=== PATIENT | male | born 1940 | race Hispanic/Latino ===

== ENCOUNTER 2017-07-10 23:54 | Inpatient (IN) | payer MEDICARE ==
[~2017-07-10] VITALS: Ht 170.2 cm; Wt 63.5 kg
[~2017-07-10 23:54] MED LIST: ASPIR 8181 MG PO; ATORVASTATIN CA40 MG PO; CARVEDILOL25 MG PO; CLOPIDOGREL75 MG PO; COUMADIN3 MG PO; FUROSEMIDE20 MG PO; ISOSORBIDE MONO60 MG PO; LISINOPRIL5 MG PO; OMEPRAZOLE20 M1 PO; POTASSIUM CHLO10 ME1 PO; SERTRALINE HCL100 MG PO
[2017-07-11] MEDS ORDERED: PANTOPRAZOLE 40 MG 10ML VIAL IV STA (00:18)
[2017-07-11] MEDS ORDERED: SODIUM CHLORIDE 0.9% 500ML 500 ML IV ONE (00:30)
[2017-07-11 00:41] LABS: BASOPHILS # (AUTO) 0.1 (0.0-0.1); BASOPHILS % 0.7 % (0.0-1.0); EOSINOPHILS # (AUTO) 0.1 (0.0-0.4); EOSINOPHILS % 1.3 % (0.0-6.0); HEMATOCRIT 51.7 % (38.2-49.6); HEMOGLOBIN 17.5 g/dL (14.0-18.0); LYMPHOCYTES # (AUTO) 1.2 (1.0-3.2); LYMPHOCYTES % 12.7 % (18.0-39.1); MEAN CORPUSCULAR HEMOGLOBIN 30.4 pg (28-32); MEAN CORPUSCULAR HGB CONC 33.8 g/dL (31-35); MEAN CORPUSCULAR VOLUME 89.9 fL (81-99); MONOCYTES # (AUTO) 0.8 (0.2-0.8); NEUTROPHILS # (AUTO) 7.3 (2.1-6.9); PLATELET COUNT 248 x10e3/uL (140-360); RED BLOOD COUNT 5.75 x10e6/uL (4.3-5.7); RED CELL DISTRIBUTION WIDTH 13.2 % (11.7-14.4)
[2017-07-11 00:51] LABS: INR 0.91; PROTHROMBIN TIME 12.7 seconds (11.9-14.5)
[2017-07-11 00:52] LABS: PARTIAL THROMBOPLASTIN TIME 30.9 seconds (23.8-35.5)
[2017-07-11 01:02] LABS: ALANINE AMINOTRANSFERASE 13 IU/L (0-55); ALBUMIN 4.3 g/dL (3.5-5.0); ALKALINE PHOSPHATASE 117 IU/L (40-150); AMYLASE 85 U/L (25-125); ANION GAP 17.2 mmol/L (8-16); BLOOD UREA NITROGEN 13 mg/dL (7-26); BUN/CREATININE RATIO 13 (6-25); CALCIUM 9.5 mg/dL (8.4-10.2); CARBON DIOXIDE 24 mmol/L (22-29); CHLORIDE 104 mmol/L (98-107); CREATINE KINASE 78 IU/L (30-200); CREATININE, SERUM 1.02 mg/dL (0.72-1.25); EST GLOMERULAR FILTRATION RATE > 60 ML/MIN (60-); GLUCOSE 108 mg/dL (74-118); LIPASE 5 U/L (8-78); POTASSIUM 4.2 mmol/L (3.5-5.1); SODIUM 141 mmol/L (136-145)
[2017-07-11 01:03] LABS: BILIRUBIN,URINE NEGATIVE (NEGATIVE); CLARITY,URINE CLEAR (CLEAR); COLOR,URINE YELLOW (YELLOW); KETONES,URINE 3+ (NEGATIVE); LEUKOCYTE ESTERASE ,URINE NEGATIVE (NEGATIVE); NITRITE,URINE NEGATIVE (NEGATIVE); URINE UROBILINOGEN 0.2 mg/dL (0.2 - 1)
[2017-07-11 01:09] LABS: TROPONIN I 0.049 ng/mL (0-0.300)
[2017-07-11 01:10] LABS: PROTEIN,URINE DIPSTICK 1+ (NEGATIVE)
[2017-07-11 01:13] LABS: B-TYPE NATRIURETIC PEPTIDE2 730.6 pg/mL (0-100)
[2017-07-11 01:16] LABS: BACTERIA,URINE FEW /HPF; RBC,URINE >50 /HPF (0-5)
[2017-07-11 01:17] LABS: EPITHELIAL CELLS,URINE FEW /LPF
[2017-07-11] MEDS ORDERED: SODIUM CHLORIDE 0.9% 1000ML 1,000 ML IV STA (02:03)
[2017-07-11] MEDS ORDERED: VANCOMYCIN 1GM/NS 250 ML 250 ML IV STA (02:03)
[2017-07-11] MEDS ORDERED: CEFTRIAXONE SOD 1 GM VIAL IV ONE (02:15)
--- NOTE | 2017-07-11 02:33 | Diagnostic Imaging Report ---
EXAMINATION: Head CT without contrast. HISTORY:Trauma, fall. COMPARISON:None. TECHNIQUE: Multidetector axial images were obtained from the foramen magnum to the vertex without contrast. The images were reconstructed using brain and bone algorithms. Thin section brain images were reformatted into coronal and sagittal planes. Intravenous contrast: None IMAGE QUALITY: Acceptable. FINDINGS: Skull/scalp: No abnormality. Parenchyma: Nonspecific bilateral frontoparietal patchy white matter hypodensity are likely related to small vessel ischemic changes. Cortical-based hypodensity centered in the left inferior frontal gyrus, frontal operculum, insular and subinsular region that extends to the saucedo radiata represents chronic encephalomalacia possibly related to prior vascular insult. No acute major vascular territorial acute infarct. No acute hemorrhage or mass. Arteries: Atherosclerotic calcification in bilateral carotid siphon. Dural sinuses: No abnormal density suggestive of thrombosis. Ventricles: Exvacuodilatation of left lateral ventricle. Moderate compensated dilatation due to volume loss. Extra-axial spaces: No abnormal density. Brain volume: Normal for age. Craniocervical junction: No mass, Chiari malformation, or basilar invagination. Sella: No mass. Paranasal/mastoid sinuses: Imaged portions unremarkable. IMPRESSION: 1. No acute intracranial abnormality, particularly no acute hemorrhage, mass or acute major vascular territorial infarct. 2. 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 3. Mild supratentorial white matter microvascular ischemic changes. Signed by: Dr. Anastasia Gee M.D. on 07/11/2017 2:29 AM
[2017-07-11] MEDS: CEFEPIME HCL 2 GM VIAL IV SCH ×2 (02:34→16:45)
--- NOTE | 2017-07-11 02:37 | Diagnostic Imaging Report ---
EXAM: CT CHEST, ABDOMEN, PELVIS with IV CONTRAST DATE: 07/11/2017 12:18 AM Time stamp on Exam: 0145 hours INDICATION: Fall, pain to entire right side COMPARISON: None TECHNIQUE: The chest, abdomen and pelvis were scanned using a multidetector helical scanner. Coronal and sagittal reformations were obtained. Routine protocol performed. IV Contrast: 100 cc Isovue-370 Oral Contrast: None CTDIvol has been reviewed. It is below the limits set by the Radiation Protocol Committee (RPC). FINDINGS: LUNGS AND AIRWAYS: No consolidations PLEURA: No effusions or pneumothorax HEART, MEDIASTINUM, VESSELS: No evidence of acute traumatic thoracic aortic injury. No mediastinal hematoma. LIVER: No lacerations or hematoma BILIARY: Normal gallbladder. No ductal dilation. SPLEEN: No lacerations or hematoma PANCREAS: No lacerations or hematoma ADRENALS: No hemorrhage KIDNEYS: Symmetric perfusion. No enhancing masses. No hydronephrosis. GI TRACT: No distention, wall thickening or evidence of obstruction. VESSELS: No evidence of acute injury. Atherosclerotic changes without aneurysm. PERITONEUM/RETROPERITONEUM: No free air or fluid LYMPH NODES: No lymphadenopathy REPRODUCTIVE ORGANS: Unremarkable BLADDER: Decompressed by Torres catheter. SOFT TISSUES: Unremarkable BONES: Old right posterior ninth through 11th fractures. Age-indeterminate nondisplaced fracture of the right L1 transverse process. IMPRESSION: No evidence of acute injury to the chest. Age-indeterminate, possibly acute nondisplaced fracture of the right L1 transverse process. No intraabdominal or pelvic abnormality. Signed by: Dr. Mirela Arora M.D. on 07/11/2017 2:33 AM
--- NOTE | 2017-07-11 02:37 | Diagnostic Imaging Report ---
History: Trauma, fall. Comparison studies: None Technique: Axial images were obtained through the cervical region.. Coronal and sagittal images reconstructed from the axial data.. Intravenous contrast: None Findings: Fractures: None. Soft tissue injuries: None. Atlantoaxial articulation: Intact. Alignment: Loss of normal cervical lordosis may be positional or due to muscle spasm. No scoliosis. Cervicomedullary junction: No abnormalities. The foramen magnum is patent. Soft tissues: No abnormalities. Vertebrae: No fractures, infection or neoplasm. Degenerative changes: Advanced degenerative changes in the anterior atlantodental joint. C2-C3: Advanced left facet arthrosis without significant foraminal stenosis. C3-C4: Moderate degenerative disc disease. Posterior disc osteophyte complex without canal stenosis. Mild left foraminal stenosis due to facet and uncovertebral arthrosis. C4-C5: Severe degenerative disc disease. Posterior disc osteophyte complex without significant canal stenosis. Severe bilateral foraminal stenosis due to facet and uncovertebral arthrosis. C5-C6: Moderate degenerative disc disease. Severe right and mild left foraminal stenosis due to facet and uncovertebral arthrosis. C6-C7: Severe degenerative disc disease. Posterior disc osteophyte complex without canal stenosis. Moderate right and severe left foraminal stenosis due to facet and uncovertebral arthrosis. C7-T1: Severe degenerative disc disease. Severe left foraminal stenosis due to facet and uncovertebral arthrosis. IMPRESSION: 1. No acute cervical spine fracture. Loss of normal cervical lordosis may be positional or due to muscle spasm. 2. Ligament, spinal cord and or vascular abnormalities cannot be excluded on the basis of this examination. 3. Cervical spondylosis as detailed above. Signed by: Dr. Anastasia Gee M.D. on 07/11/2017 2:34 AM
--- NOTE | 2017-07-11 02:38 | Diagnostic Imaging Report ---
EXAM: CHEST SINGLE (PORTABLE), AP 1 view DATE: 07/11/2017 12:18 AM Time stamp on exam: 2248 hours INDICATION: Right-sided rib pain COMPARISON: None FINDINGS: LINES/TUBES: None LUNGS: No consolidations or edema. PLEURA: No effusions or pneumothorax. HEART AND MEDIASTINUM: Normal size and contour. BONES AND SOFT TISSUES: No acute findings. IMPRESSION: No acute thoracic abnormality. Signed by: Dr. Mirela Arora M.D. on 07/11/2017 2:35 AM
[2017-07-11] MEDS ORDERED: LABETALOL HCL IV 5 MG/ML 20ML MDV IV STA (03:50)
[2017-07-11] MEDS ORDERED: METOPROLOL TARTRATE 25 MG TAB PO ONE (04:30)
--- NOTE | 2017-07-11 04:45 | Diagnostic Imaging Report ---
EXAM: KNEE RIGHT THREE VIEWS, AP, lateral and oblique DATE: 07/11/2017 4:11 AM Time stamp on exam: 0119 hours INDICATION: Fall, right knee pain COMPARISON: None FINDINGS: BONES: No acute fractures. JOINTS: No malalignment. SOFT TISSUES: Vascular calcifications. Small joint effusion. IMPRESSION: Small joint effusion. No right knee fracture. Signed by: Dr. Mirela Arora M.D. on 07/11/2017 4:42 AM
[2017-07-11] MEDS ORDERED: SODIUM CHLORIDE 0.9% 1000ML 1,000 ML ONE (04:56)
[2017-07-11] MEDS: FAMOTIDINE 20 MG/2 ML VIAL IV SCH ×2 (04:59→17:00)
[2017-07-11] MEDS: SODIUM CHLORIDE 0.9% 1000ML 1,000 ML IV SCH ×2 (04:59→14:21)
[2017-07-11] MEDS ORDERED: SODIUM CHLORIDE 0.9% 50ML 50 ML ONE (07:07)
[2017-07-11] MEDS ORDERED: IOPAMIDOL 370 MG/ML 200 ML INFUS..BTL INJ ONE (07:07)
[2017-07-11 07:18] VITALS: BP 181/93
[2017-07-11 08:00] VITALS: BP 191/87
[2017-07-11] MEDS: METOPROLOL TARTRATE 25 MG TAB PO SCH ×2 (09:52→18:54)
[2017-07-11] MEDS: ASPIRIN 81 MG ENTERIC COATED PO SCH (09:52)
[2017-07-11 10:43] LABS: CREATINE KINASE MB 1.5 ng/mL (0.00-5.00); TROPONIN I 0.062 ng/mL (0-0.300)
--- NOTE | 2017-07-11 11:04 | History and Physical ---
PRIMARY CARE PHYSICIAN: Dr. Miramontes at [facility]. CHIEF COMPLAINT: Fall. HISTORY OF PRESENT ILLNESS: A 76-year-old man with a history of ambulatory dysfunction and stroke with right-sided weakness, uses a walker sometimes. Now having a fall, probably about 2 days ago. His daughter notes that he had fallen but did not tell them. When they tried to get him up, he was in significant back pain. Therefore, they brought him to the hospital. Patient complaining of lower back pain. Imaging showed an L1 fracture. He is admitted for further evaluation and management. PAST MEDICAL HISTORY: Stroke with right-sided weakness. Atrial fibrillation, on Coumadin. Coronary artery disease status post stent about 1 year ago, on Plavix. Hypertension. Hyperlipidemia. Congestive heart failure, type unknown. Anxiety/depression. PAST SURGICAL HISTORY: Unknown. ALLERGIES: PER THE ELECTRONIC MEDICAL RECORDS. FAMILY HISTORY/SOCIAL HISTORY: Patient lives with his daughter. He smokes occasionally. No alcohol or illicits. MEDICATIONS: Per the electronic medical records. Reviewed. REVIEW OF SYSTEMS: Denies any chest pain or shortness of breath. VITAL SIGNS: Have been reviewed. PHYSICAL EXAMINATION GENERAL APPEARANCE: A tired-appearing man resting in bed. HEENT: Anicteric. Poor dentition. CARDIOVASCULAR: Normal S1/S2. LUNGS: Good breath sounds. ABDOMEN: Soft, nontender, nondistended. BACK: He has tenderness in the lumbar region. EXTREMITIES: No edema or calf tenderness. NEUROLOGICALLY: He is alert, awake. He is oriented x3. He moves all extremities, but he has right-sided weakness in the right arm and leg and limited movement. SKIN: Dry. PSYCHIATRIC: Flat affect. LABS: Reviewed. ASSESSMENT AND PLAN: A 76-year-old man. 1. Fall with L1 lumbar fracture. Will consult Radiology for kyphoplasty. He will need DEXA scan, and he will need treatment for presumed osteoporosis. 2. Urinary tract infection. Levaquin. Follow up cultures. 3. Right knee effusion, small. Will monitor. 4. Physical deconditioning. Physical therapy consultation. 5. Atrial fibrillation. He is on Coumadin. Withhold Coumadin at this time in preparation for procedure. 6. Coronary artery disease with a history of stent about 1 year ago. Will hold Plavix in anticipation of procedure. 7. Hypertension/hyperlipidemia. Will resume his JOSEFA inhibitor, nitrate, beta cristopher, statin. 8. Anxiety/depression. We will resume sertraline. 9. Back pain. Use p.r.n. pain medication. 10. Prophylaxis. Will use PPI and SCDs. 11. Disposition. Await procedure. Will consult Radiology. Treat infection. Monitor fluid status and continue Lasix use. Job#: [id number] EV
[2017-07-11 12:00] VITALS: BP 163/74
[2017-07-11 16:00] VITALS: BP 173/75
[2017-07-11] MEDS: MORPHINE SULFATE 2 MG/ML SYR IV PRN (16:15)
[2017-07-11] MEDS: CARVEDILOL 12.5 MG TAB PO SCH (17:00)
[2017-07-11 19:17] LABS: CREATINE KINASE MB 1.6 ng/mL (0.00-5.00); TROPONIN I 0.056 ng/mL (0-0.300)
[2017-07-11 20:00] VITALS: BP 151/77
[2017-07-11] MEDS: LISINOPRIL 2.5 MG TAB PO SCH (22:07)
[2017-07-11] MEDS: ATORVASTATIN 40 MG TAB PO SCH (22:07)
[2017-07-12] VITALS: BP 142/90
[2017-07-12] MEDS: SODIUM CHLORIDE 0.9% 1000ML 1,000 ML IV SCH ×2 (01:25→22:42)
[2017-07-12] MEDS: CEFEPIME HCL 2 GM VIAL IV SCH ×2 (03:47→15:00)
[2017-07-12] MEDS: FAMOTIDINE 20 MG/2 ML VIAL IV SCH ×2 (05:35→17:17)
[2017-07-12] MEDS: MORPHINE SULFATE 2 MG/ML SYR IV PRN (05:36)
[2017-07-12] MEDS: ONDANSETRON HCL INJ 2 MG/ML VIAL IV PRN (05:36)
[2017-07-12 08:00] VITALS: BP 160/70
[2017-07-12 08:31] LABS: BASOPHILS # (AUTO) 0.1 (0.0-0.1); BASOPHILS % 0.6 % (0.0-1.0); EOSINOPHILS # (AUTO) 0.5 (0.0-0.4); EOSINOPHILS % 6.9 % (0.0-6.0); HEMATOCRIT 38.2 % (38.2-49.6); HEMOGLOBIN 12.7 g/dL (14.0-18.0); LYMPHOCYTES # (AUTO) 0.9 (1.0-3.2); LYMPHOCYTES % 10.8 % (18.0-39.1); MEAN CORPUSCULAR HEMOGLOBIN 30.1 pg (28-32); MEAN CORPUSCULAR HGB CONC 33.2 g/dL (31-35); MEAN CORPUSCULAR VOLUME 90.5 fL (81-99); MONOCYTES # (AUTO) 0.6 (0.2-0.8); MONOCYTES % 7.5 % (4.4-11.3); NEUTROPHILS # (AUTO) 5.8 (2.1-6.9); NEUTROPHILS % 73.8 % (38.7-80.0); PLATELET COUNT 181 x10e3/uL (140-360); RED BLOOD COUNT 4.22 x10e6/uL (4.3-5.7); RED CELL DISTRIBUTION WIDTH 13.2 % (11.7-14.4)
[2017-07-12 09:03] LABS: ALANINE AMINOTRANSFERASE 8 IU/L (0-55); ALBUMIN 2.7 g/dL (3.5-5.0); ALBUMIN/GLOBULIN RATIO 0.9 (0.8-2.0); ALKALINE PHOSPHATASE 65 IU/L (40-150); ANION GAP 9.3 mmol/L (8-16); BLOOD UREA NITROGEN 10 mg/dL (7-26); BUN/CREATININE RATIO 12 (6-25); CALCIUM 7.8 mg/dL (8.4-10.2); CARBON DIOXIDE 22 mmol/L (22-29); CHLORIDE 112 mmol/L (98-107); CHOL/HDL RATIO 3.6 (3.9-4.7); CHOLESTEROL 128 MD/DL (0-199); CREATININE, SERUM 0.85 mg/dL (0.72-1.25); EST GLOMERULAR FILTRATION RATE > 60 ML/MIN (60-); GLUCOSE 143 mg/dL (74-118); HDL CHOLESTEROL 36 MG/DL (40-60); LDL CHOLESTEROL 77 MG/DL (60-130); POTASSIUM 3.3 mmol/L (3.5-5.1); SODIUM 140 mmol/L (136-145); TRIGLYCERIDES 77 MG/DL (0-149)
[2017-07-12] MEDS: PANTOPRAZOLE SOD 40 MG TABEC PO SCH (10:05)
[2017-07-12] MEDS: CARVEDILOL 12.5 MG TAB PO SCH ×2 (10:05→17:18)
[2017-07-12] MEDS: ISOSORBIDE MONONITRATE 30 MG TAB CR PO SCH (10:05)
[2017-07-12] MEDS: ASPIRIN 81 MG ENTERIC COATED PO SCH (10:05)
[2017-07-12] MEDS: SERTRALINE HCL 100 MG TAB PO SCH (10:06)
[2017-07-12] MEDS: FUROSEMIDE 20 MG TAB PO SCH (10:06)
[2017-07-12] MEDS: METOPROLOL TARTRATE 25 MG TAB PO SCH ×2 (10:06→17:18)
[2017-07-12 12:00] VITALS: BP 122/56
[2017-07-12] MEDS ORDERED: POTASSIUM CHLORIDE 20 MEQ TAB CR PO ONE (12:30)
[2017-07-12] MEDS ORDERED: CALCIUM GLUCONATE 10% INJ 4.65 MEQ in SODIUM CHLORIDE 0.9% 50ML 50 ML IV ONE (13:00)
[2017-07-12] MEDS ORDERED: SODIUM CHLORIDE 0.9% 250ML 250 ML ONE (13:27)
[2017-07-12 16:00] VITALS: BP 120/58
[2017-07-12 20:00] VITALS: BP 101/49
[2017-07-12 22:32] LABS: HEMATOCRIT 34.1 % (38.2-49.6); HEMOGLOBIN 11.2 g/dL (14.0-18.0)
[2017-07-12] MEDS: ATORVASTATIN 40 MG TAB PO SCH (22:42)
[2017-07-12] MEDS: LISINOPRIL 2.5 MG TAB PO SCH (22:43)
[2017-07-13 00:07] VITALS: BP 124/61
[2017-07-13] MEDS: CEFEPIME HCL 2 GM VIAL IV SCH ×2 (03:50→17:00)
[2017-07-13 05:14] LABS: BASOPHILS # (AUTO) 0.1 (0.0-0.1); BASOPHILS % 0.7 % (0.0-1.0); EOSINOPHILS # (AUTO) 0.3 (0.0-0.4); EOSINOPHILS % 3.7 % (0.0-6.0); HEMATOCRIT 30.4 % (38.2-49.6); HEMOGLOBIN 10.3 g/dL (14.0-18.0); LYMPHOCYTES # (AUTO) 1.5 (1.0-3.2); LYMPHOCYTES % 20.6 % (18.0-39.1); MEAN CORPUSCULAR HEMOGLOBIN 30.4 pg (28-32); MEAN CORPUSCULAR HGB CONC 33.9 g/dL (31-35); MEAN CORPUSCULAR VOLUME 89.7 fL (81-99); MONOCYTES # (AUTO) 0.9 (0.2-0.8); NEUTROPHILS # (AUTO) 4.5 (2.1-6.9); NEUTROPHILS % 62.6 % (38.7-80.0); PLATELET COUNT 165 x10e3/uL (140-360); RED BLOOD COUNT 3.39 x10e6/uL (4.3-5.7); RED CELL DISTRIBUTION WIDTH 13.2 % (11.7-14.4)
[2017-07-13] MEDS: FAMOTIDINE 20 MG/2 ML VIAL IV SCH ×2 (05:40→16:45)
[2017-07-13] MEDS: SODIUM CHLORIDE 0.9% 1000ML 1,000 ML IV SCH ×3 (05:40→21:00)
[2017-07-13 07:10] VITALS: BP 133/56
[2017-07-13 07:38] LABS: ANION GAP 6.3 mmol/L (8-16); BLOOD UREA NITROGEN 12 mg/dL (7-26); BUN/CREATININE RATIO 13 (6-25); CALCIUM 7.6 mg/dL (8.4-10.2); CARBON DIOXIDE 23 mmol/L (22-29); CHLORIDE 107 mmol/L (98-107); EST GLOMERULAR FILTRATION RATE > 60 ML/MIN (60-); GLUCOSE 108 mg/dL (74-118); POTASSIUM 3.3 mmol/L (3.5-5.1); SODIUM 133 mmol/L (136-145)
[2017-07-13 07:59] LABS: FERRITIN 80.51 ng/mL (21.81-274.66)
[2017-07-13 08:56] LABS: FOLATE 14.1 ng/mL (7.0-15.4)
[2017-07-13] MEDS: ASPIRIN 81 MG ENTERIC COATED PO SCH (09:00)
[2017-07-13] MEDS: ONDANSETRON HCL INJ 2 MG/ML VIAL IV PRN (09:19)
[2017-07-13] MEDS: MORPHINE SULFATE 2 MG/ML SYR IV PRN (09:20)
[2017-07-13] MEDS: PANTOPRAZOLE SOD 40 MG TABEC PO SCH (09:27)
[2017-07-13] MEDS: FUROSEMIDE 20 MG TAB PO SCH (09:28)
[2017-07-13] MEDS: ISOSORBIDE MONONITRATE 30 MG TAB CR PO SCH (09:28)
[2017-07-13] MEDS: OYST-CAL-D 500MG TABLET PO SCH (09:28)
[2017-07-13] MEDS: SERTRALINE HCL 100 MG TAB PO SCH (09:28)
[2017-07-13] MEDS: CARVEDILOL 12.5 MG TAB PO SCH ×2 (09:28→17:00)
[2017-07-13] MEDS: METOPROLOL TARTRATE 25 MG TAB PO SCH ×2 (09:28→19:21)
[2017-07-13 11:33] VITALS: BP 141/72
[2017-07-13] MEDS ORDERED: POTASSIUM CHLORIDE 10 MEQ TABCR PO ONE (11:45)
--- NOTE | 2017-07-13 13:37 | Progress Note ---
DATE: July 13, 2017 CHIEF COMPLAINT: Fall and hip pain. ALLERGIES: NO KNOWN DRUG ALLERGIES. SUBJECTIVE: Reports feeling better. The patient is alone. MEDICATIONS: Please see MAR. OBJECTIVE VITAL SIGNS: Temperature 98.6, pulse 61, blood pressure 133/56, respirations 16, satting 100% on room air, weight 143. GENERAL: The patient is awake, alert, oriented and in no apparent distress at this time. LUNGS: Clear to auscultation bilaterally with normal respiratory effort. CARDIOVASCULAR: Regular rate and rhythm. No murmurs appreciated. HEENT: Extraocular movements are intact. Anicteric. ABDOMEN: Soft. Bowel sounds present. Nontender and nondistended. NEUROLOGIC: Nonfocal. EXTREMITIES: No calf tenderness. NECK: Supple. Trachea midline with no mass appreciated. LABORATORY DATA: Sodium 133, potassium 3.3, chloride 107, CO2 of 23, BUN 12, creatinine 0.90, glucose 108, white count 7.10, hemoglobin 10.3, hematocrit 30.4, platelets 165,000. DIAGNOSES AND PLAN: 1. Fall with L1 lumbar fracture. Will continue to monitor. Pending kyphoplasty. 2. Urinary tract infection. Continue on IV antibiotics. Urine culture showed no growth at 36-48 hours. 3. Atrial fibrillation. Will continue on medications of metoprolol and Coreg. 4. Coronary artery disease. Continue to monitor the patient. Will likely have to stay off the Plavix and the aspirin until kyphoplasty is completed. 5. Hypertension. Blood pressure is stable. Continue on medications. 6. Hyperlipidemia. Continue to monitor. 7. Anxiety versus depression. Will continue on Zoloft. 8. Right knee effusion. Continue to monitor. Continue with pain management. 9. Deconditioning. Will continue with physical therapy. Will consult case management for [facility] facility placement. 10. Hypokalemia secondary to diuresis of furosemide. Will replete with 30 mEq of potassium p.o. x1 dose. 11. Hypocalcemia. The patient continues on oral Tums. Will continue to monitor calcium level in the a.m. 12. Anemia. Hemoglobin and hematocrit are stable at this time. Will get a fecal occult blood since it has not been done. Dictated by Armaan Funes NP Job#: [id number] GH
[2017-07-13 16:28] VITALS: BP 121/63
[2017-07-13 20:27] VITALS: BP 129/69
[2017-07-13 20:28] VITALS: BP 105/55
[2017-07-13] MEDS: LISINOPRIL 2.5 MG TAB PO SCH (21:00)
[2017-07-13] MEDS: ATORVASTATIN 40 MG TAB PO SCH (21:11)
[2017-07-14 01:07] VITALS: BP 149/74
[2017-07-14] MEDS: CEFEPIME HCL 2 GM VIAL IV SCH (03:12)
[2017-07-14] MEDS: SODIUM CHLORIDE 0.9% 1000ML 1,000 ML IV SCH ×2 (04:40→12:45)
[2017-07-14] MEDS: FAMOTIDINE 20 MG/2 ML VIAL IV SCH ×2 (04:40→17:25)
[2017-07-14 06:16] VITALS: BP 155/78
[2017-07-14 06:47] LABS: BASOPHILS # (AUTO) 0.1 (0.0-0.1); BASOPHILS % 0.8 % (0.0-1.0); EOSINOPHILS # (AUTO) 0.5 (0.0-0.4); EOSINOPHILS % 8.4 % (0.0-6.0); HEMATOCRIT 29.6 % (38.2-49.6); HEMOGLOBIN 9.9 g/dL (14.0-18.0); LYMPHOCYTES # (AUTO) 1.4 (1.0-3.2); LYMPHOCYTES % 21.9 % (18.0-39.1); MEAN CORPUSCULAR HEMOGLOBIN 30.3 pg (28-32); MEAN CORPUSCULAR HGB CONC 33.4 g/dL (31-35); MEAN CORPUSCULAR VOLUME 90.5 fL (81-99); MONOCYTES # (AUTO) 0.6 (0.2-0.8); MONOCYTES % 9.3 % (4.4-11.3); NEUTROPHILS # (AUTO) 3.8 (2.1-6.9); NEUTROPHILS % 59.4 % (38.7-80.0); PLATELET COUNT 162 x10e3/uL (140-360); RED BLOOD COUNT 3.27 x10e6/uL (4.3-5.7); RED CELL DISTRIBUTION WIDTH 13.2 % (11.7-14.4)
[2017-07-14 07:21] LABS: ANION GAP 9.5 mmol/L (8-16); BLOOD UREA NITROGEN 9 mg/dL (7-26); BUN/CREATININE RATIO 10 (6-25); CALCIUM 7.7 mg/dL (8.4-10.2); CARBON DIOXIDE 25 mmol/L (22-29); CHLORIDE 111 mmol/L (98-107); EST GLOMERULAR FILTRATION RATE > 60 ML/MIN (60-); GLUCOSE 94 mg/dL (74-118); POTASSIUM 3.5 mmol/L (3.5-5.1); SODIUM 142 mmol/L (136-145)
[2017-07-14 07:56] VITALS: BP 156/70
[2017-07-14] MEDS: CARVEDILOL 12.5 MG TAB PO SCH ×2 (08:42→17:25)
[2017-07-14] MEDS: ASPIRIN 81 MG ENTERIC COATED PO SCH (08:42)
[2017-07-14] MEDS: PANTOPRAZOLE SOD 40 MG TABEC PO SCH (08:42)
[2017-07-14] MEDS: OYST-CAL-D 500MG TABLET PO SCH (08:43)
[2017-07-14] MEDS: METOPROLOL TARTRATE 25 MG TAB PO SCH (08:43)
[2017-07-14] MEDS: SERTRALINE HCL 100 MG TAB PO SCH (08:43)
[2017-07-14] MEDS: ISOSORBIDE MONONITRATE 30 MG TAB CR PO SCH (08:43)
[2017-07-14] MEDS: FUROSEMIDE 20 MG TAB PO SCH (08:43)
[2017-07-14 13:09] VITALS: BP 124/65
[2017-07-14] MEDS: MORPHINE SULFATE 2 MG/ML SYR IV PRN (17:56)
[2017-07-14] MEDS: ONDANSETRON HCL INJ 2 MG/ML VIAL IV PRN (17:56)
[2017-07-14 21:20] VITALS: BP 120/57
[2017-07-14] MEDS: ATORVASTATIN 40 MG TAB PO SCH (21:56)
[2017-07-15 00:42] VITALS: BP 142/67
[2017-07-15] MEDS: FAMOTIDINE 20 MG/2 ML VIAL IV SCH ×2 (04:23→17:20)
[2017-07-15 06:02] VITALS: BP 165/71
[2017-07-15 06:58] LABS: BASOPHILS # (AUTO) 0.1 (0.0-0.1); BASOPHILS % 1.2 % (0.0-1.0); EOSINOPHILS # (AUTO) 0.5 (0.0-0.4); EOSINOPHILS % 6.9 % (0.0-6.0); HEMATOCRIT 29.3 % (38.2-49.6); HEMOGLOBIN 9.9 g/dL (14.0-18.0); LYMPHOCYTES # (AUTO) 1.5 (1.0-3.2); LYMPHOCYTES % 21.4 % (18.0-39.1); MEAN CORPUSCULAR HEMOGLOBIN 30.4 pg (28-32); MEAN CORPUSCULAR HGB CONC 33.8 g/dL (31-35); MEAN CORPUSCULAR VOLUME 89.9 fL (81-99); MONOCYTES # (AUTO) 0.7 (0.2-0.8); MONOCYTES % 10.3 % (4.4-11.3); NEUTROPHILS # (AUTO) 4.1 (2.1-6.9); NEUTROPHILS % 59.9 % (38.7-80.0); PLATELET COUNT 172 x10e3/uL (140-360); RED BLOOD COUNT 3.26 x10e6/uL (4.3-5.7); RED CELL DISTRIBUTION WIDTH 13.1 % (11.7-14.4)
[2017-07-15 07:34] LABS: ANION GAP 9.3 mmol/L (8-16); BLOOD UREA NITROGEN 8 mg/dL (7-26); BUN/CREATININE RATIO 9 (6-25); CARBON DIOXIDE 27 mmol/L (22-29); CHLORIDE 109 mmol/L (98-107); CREATININE, SERUM 0.87 mg/dL (0.72-1.25); EST GLOMERULAR FILTRATION RATE > 60 ML/MIN (60-); GLUCOSE 89 mg/dL (74-118); POTASSIUM 3.3 mmol/L (3.5-5.1); SODIUM 142 mmol/L (136-145)
[2017-07-15 08:00] VITALS: BP 143/67
--- NOTE | 2017-07-15 08:20 | Diagnostic Imaging Report ---
History: Back pain, L1 fracture Comparison studies: CT abdomen 07/11/2017 Technique: Sagittal, coronal and axial T2 , sagittal T1 and IR, axial spin density oblique. Intravenous contrast: None Findings: Number of lumbar vertebral bodies:5 Alignment: Normal lordosis.Mild levoscoliosis centered at L3 vertebral body. Soft tissues: Mild edema signal adjacent to the L1 right transverse processes. Paraspinal muscles: No signal abnormalities. No atrophy. Lower thoracic cord:Normal in signal and morphology. The tip of the conus is at T12-L1. Cauda equina: No masses. No arachnoiditis. Vertebrae: Acute nondisplaced fracture of L1 right transverse process. No fracture is seen at L1 vertebral body. Mild edema signal at L4 and L5 superior endplates, with associated Schmorl nodes, likely degenerative. The vertebral bodies are normal in height. No compression fractures, infection or neoplasm. Degenerative changes: Diffuse disc degeneration with loss of T2 signal more significant at L5-S1 with decreased intervertebral space. L1-L2: Patent canal and foramina. L2-L3: Patent canal and foramina. L3-L4: Mild diffuse disc bulge, mild facet hypertrophy and ligamentum flavum thickening without significant canal stenosis or foraminal narrowing. Trace of fluid of the bilateral facet joints. L4-L5: Asymmetric left disc bulge, moderate facet hypertrophy and ligamentum flavum thickening results in mild canal stenosis, moderate right and mild left foraminal narrowing. Fluid intensity signal of the bilateral facet joints. L5-S1: Diffuse disc bulge, moderate right and severe left facet hypertrophy with grossly patent canal and severe left foraminal narrowing. Additional findings: None IMPRESSION: No fracture of L1 vertebral body. Acute nondisplaced fracture of L1 right transverse process. No other fracture is seen. Severe left foraminal narrowing at L5-S1 secondary to severe left facet hypertrophy, with possible impingement on the exiting L1 nerve root. Moderate right and mild left foraminal narrowing at L4-L5 secondary to degenerative changes. Diffuse disc degeneration more significant at L5-S1. Mild endplate edema at L4-L5 and L4 superior endplate, likely degenerative. Moderate to severe facet hypertrophy at the lower lumbar spine with synovitis changes at L4-L5. Signed by: DR Curt Strauss M.D. on 07/15/2017 8:16 AM
[2017-07-15] MEDS: ASPIRIN 81 MG ENTERIC COATED PO SCH (10:15)
[2017-07-15] MEDS: PANTOPRAZOLE SOD 40 MG TABEC PO SCH (10:15)
[2017-07-15] MEDS: SERTRALINE HCL 100 MG TAB PO SCH (10:16)
[2017-07-15] MEDS: CARVEDILOL 12.5 MG TAB PO SCH ×2 (10:16→17:21)
[2017-07-15] MEDS: OYST-CAL-D 500MG TABLET PO SCH (10:16)
[2017-07-15] MEDS: ISOSORBIDE MONONITRATE 30 MG TAB CR PO SCH (10:16)
[2017-07-15] MEDS: FUROSEMIDE 20 MG TAB PO SCH (10:16)
[2017-07-15] MEDS ORDERED: POTASSIUM CHLORIDE 20 MEQ TAB CR PO ONE (11:15)
[2017-07-15 12:00] VITALS: BP 167/76
--- NOTE | 2017-07-15 14:49 | Diagnostic Imaging Report ---
PROCEDURE:HIP RIGHT ONE VW (+/- PELVIS) TECHNIQUE: Portable AP view right hip COMPARISON:None. INDICATIONS:Right hip pain FINDINGS: The right hip is grossly intact and in anatomic alignment. Regional skeleton is intact. Joint space is preserved. Normal regional soft tissues. Study limited by single plane imaging and portable technique. CONCLUSION: Limited study without acute abnormality. Dictated by: Kwan Agustin M.D. on 07/15/2017 at 14:58 Electronically approved by: Kwan Agustin M.D. on 07/15/2017 at 14:58
[2017-07-15 16:00] VITALS: BP 142/63
[2017-07-15 20:00] VITALS: BP 147/66
[2017-07-15] MEDS: ATORVASTATIN 40 MG TAB PO SCH (21:28)
[2017-07-16] VITALS: BP 138/76
[2017-07-16 04:49] VITALS: BP 163/77
[2017-07-16] MEDS: FAMOTIDINE 20 MG/2 ML VIAL IV SCH ×2 (05:00→17:51)
[2017-07-16 06:21] LABS: BASOPHILS # (AUTO) 0.1 (0.0-0.1); EOSINOPHILS # (AUTO) 0.4 (0.0-0.4); EOSINOPHILS % 5.5 % (0.0-6.0); HEMOGLOBIN 10.6 g/dL (14.0-18.0); LYMPHOCYTES # (AUTO) 1.6 (1.0-3.2); LYMPHOCYTES % 22.6 % (18.0-39.1); MEAN CORPUSCULAR HEMOGLOBIN 29.9 pg (28-32); MEAN CORPUSCULAR HGB CONC 34.2 g/dL (31-35); MEAN CORPUSCULAR VOLUME 87.6 fL (81-99); MONOCYTES # (AUTO) 0.6 (0.2-0.8); NEUTROPHILS # (AUTO) 4.3 (2.1-6.9); NEUTROPHILS % 61.8 % (38.7-80.0); PLATELET COUNT 187 x10e3/uL (140-360); RED BLOOD COUNT 3.54 x10e6/uL (4.3-5.7); RED CELL DISTRIBUTION WIDTH 12.9 % (11.7-14.4)
[2017-07-16 06:42] LABS: ANION GAP 10.3 mmol/L (8-16); BLOOD UREA NITROGEN 10 mg/dL (7-26); BUN/CREATININE RATIO 12 (6-25); CALCIUM 8.2 mg/dL (8.4-10.2); CARBON DIOXIDE 27 mmol/L (22-29); CHLORIDE 109 mmol/L (98-107); CREATININE, SERUM 0.86 mg/dL (0.72-1.25); EST GLOMERULAR FILTRATION RATE > 60 ML/MIN (60-); GLUCOSE 90 mg/dL (74-118); POTASSIUM 3.3 mmol/L (3.5-5.1); SODIUM 143 mmol/L (136-145)
[2017-07-16 08:00] VITALS: BP 189/77
[2017-07-16] MEDS: FUROSEMIDE 20 MG TAB PO SCH (08:49)
[2017-07-16] MEDS: CARVEDILOL 12.5 MG TAB PO SCH ×2 (08:49→17:52)
[2017-07-16] MEDS: OYST-CAL-D 500MG TABLET PO SCH (08:49)
[2017-07-16] MEDS: SERTRALINE HCL 100 MG TAB PO SCH (08:49)
[2017-07-16] MEDS: PANTOPRAZOLE SOD 40 MG TABEC PO SCH (08:49)
[2017-07-16] MEDS: ISOSORBIDE MONONITRATE 30 MG TAB CR PO SCH (08:49)
[2017-07-16] MEDS ORDERED: ASPIRIN 81 MG CHEW TAB PO SCH (09:00)
[2017-07-16] MEDS ORDERED: CLOPIDOGREL BISULFATE 75 MG TAB PO SCH (09:00)
[2017-07-16] MEDS ORDERED: POTASSIUM CHLORIDE 20 MEQ TAB CR PO STA (09:29)
[2017-07-16 12:00] VITALS: BP 129/62
[2017-07-16] MEDS: AMLODIPINE BESYLATE 5 MG TAB PO SCH (13:00)
[2017-07-16 16:00] VITALS: BP 173/71
[2017-07-16] MEDS: FERROUS SULFATE 325 MG TAB PO SCH (17:51)
[2017-07-16] MEDS: ASCORBIC ACID 500 MG TAB PO SCH (17:52)
[2017-07-16 20:00] VITALS: BP 140/59
[2017-07-16] MEDS: ATORVASTATIN 40 MG TAB PO SCH (20:29)
[2017-07-17] VITALS: BP 156/80
[2017-07-17 04:00] VITALS: BP 139/63
[2017-07-17] MEDS: FAMOTIDINE 20 MG/2 ML VIAL IV SCH ×2 (05:20→17:06)
[2017-07-17 06:23] LABS: BASOPHILS # (AUTO) 0.1 (0.0-0.1); BASOPHILS % 1.2 % (0.0-1.0); EOSINOPHILS # (AUTO) 0.4 (0.0-0.4); EOSINOPHILS % 6.3 % (0.0-6.0); HEMATOCRIT 33.2 % (38.2-49.6); LYMPHOCYTES # (AUTO) 1.8 (1.0-3.2); LYMPHOCYTES % 26.4 % (18.0-39.1); MEAN CORPUSCULAR HEMOGLOBIN 29.3 pg (28-32); MEAN CORPUSCULAR HGB CONC 33.1 g/dL (31-35); MEAN CORPUSCULAR VOLUME 88.3 fL (81-99); MONOCYTES # (AUTO) 0.7 (0.2-0.8); MONOCYTES % 10.1 % (4.4-11.3); NEUTROPHILS # (AUTO) 3.8 (2.1-6.9); NEUTROPHILS % 55.7 % (38.7-80.0); PLATELET COUNT 204 x10e3/uL (140-360); RED BLOOD COUNT 3.76 x10e6/uL (4.3-5.7); RED CELL DISTRIBUTION WIDTH 12.9 % (11.7-14.4)
[2017-07-17 06:50] LABS: ANION GAP 10.4 mmol/L (8-16); BLOOD UREA NITROGEN 9 mg/dL (7-26); BUN/CREATININE RATIO 11 (6-25); CALCIUM 8.5 mg/dL (8.4-10.2); CARBON DIOXIDE 29 mmol/L (22-29); CHLORIDE 106 mmol/L (98-107); CREATININE, SERUM 0.83 mg/dL (0.72-1.25); EST GLOMERULAR FILTRATION RATE > 60 ML/MIN (60-); GLUCOSE 94 mg/dL (74-118); POTASSIUM 3.4 mmol/L (3.5-5.1); SODIUM 142 mmol/L (136-145)
[2017-07-17 08:00] VITALS: BP 139/63
[2017-07-17] MEDS: CARVEDILOL 12.5 MG TAB PO SCH ×2 (09:32→17:07)
[2017-07-17] MEDS: FUROSEMIDE 20 MG TAB PO SCH (09:32)
[2017-07-17] MEDS: OYST-CAL-D 500MG TABLET PO SCH (09:32)
[2017-07-17] MEDS: MULTIVITAMINS/MINERALS TAB PO SCH (09:32)
[2017-07-17] MEDS: FERROUS SULFATE 325 MG TAB PO SCH ×2 (09:32→17:06)
[2017-07-17] MEDS: SERTRALINE HCL 100 MG TAB PO SCH (09:32)
[2017-07-17] MEDS: AMLODIPINE BESYLATE 5 MG TAB PO SCH (09:32)
[2017-07-17] MEDS: ASCORBIC ACID 500 MG TAB PO SCH ×2 (09:32→17:06)
[2017-07-17] MEDS: PANTOPRAZOLE SOD 40 MG TABEC PO SCH (09:32)
[2017-07-17] MEDS: ISOSORBIDE MONONITRATE 30 MG TAB CR PO SCH (09:33)
[2017-07-17] MEDS ORDERED: POTASSIUM CHLORIDE 20 MEQ TAB CR PO ONE (12:30)
[2017-07-17 12:45] VITALS: BP 141/63
[2017-07-17 16:33] VITALS: BP 132/58
[2017-07-17 20:00] VITALS: BP 143/60
[2017-07-17] MEDS ORDERED: LISINOPRIL 10 MG TAB PO SCH (21:00)
[2017-07-17] MEDS: ATORVASTATIN 40 MG TAB PO SCH (21:51)
[2017-07-18] VITALS: BP 145/60
[2017-07-18] MEDS: FAMOTIDINE 20 MG/2 ML VIAL IV SCH (04:45)
[2017-07-18 07:22] LABS: BASOPHILS # (AUTO) 0.1 (0.0-0.1); BASOPHILS % 0.9 % (0.0-1.0); EOSINOPHILS # (AUTO) 0.5 (0.0-0.4); EOSINOPHILS % 6.4 % (0.0-6.0); HEMATOCRIT 33.5 % (38.2-49.6); HEMOGLOBIN 11.3 g/dL (14.0-18.0); LYMPHOCYTES # (AUTO) 2.1 (1.0-3.2); LYMPHOCYTES % 27.2 % (18.0-39.1); MEAN CORPUSCULAR HGB CONC 33.7 g/dL (31-35); MEAN CORPUSCULAR VOLUME 88.9 fL (81-99); MONOCYTES # (AUTO) 0.7 (0.2-0.8); MONOCYTES % 9.6 % (4.4-11.3); NEUTROPHILS # (AUTO) 4.2 (2.1-6.9); NEUTROPHILS % 55.6 % (38.7-80.0); PLATELET COUNT 226 x10e3/uL (140-360); RED BLOOD COUNT 3.77 x10e6/uL (4.3-5.7)
[2017-07-18 07:55] LABS: ANION GAP 11.5 mmol/L (8-16); BLOOD UREA NITROGEN 14 mg/dL (7-26); BUN/CREATININE RATIO 15 (6-25); CALCIUM 8.7 mg/dL (8.4-10.2); CARBON DIOXIDE 29 mmol/L (22-29); CHLORIDE 106 mmol/L (98-107); CREATININE, SERUM 0.93 mg/dL (0.72-1.25); EST GLOMERULAR FILTRATION RATE > 60 ML/MIN (60-); GLUCOSE 94 mg/dL (74-118); POTASSIUM 3.5 mmol/L (3.5-5.1); SODIUM 143 mmol/L (136-145)
[2017-07-18 08:00] VITALS: BP 134/60
[2017-07-18] MEDS: FERROUS SULFATE 325 MG TAB PO SCH (08:14)
[2017-07-18] MEDS: MULTIVITAMINS/MINERALS TAB PO SCH (08:14)
[2017-07-18] MEDS: FUROSEMIDE 20 MG TAB PO SCH (08:14)
[2017-07-18] MEDS: CARVEDILOL 12.5 MG TAB PO SCH (08:14)
[2017-07-18] MEDS: ISOSORBIDE MONONITRATE 30 MG TAB CR PO SCH (08:14)
[2017-07-18] MEDS: PANTOPRAZOLE SOD 40 MG TABEC PO SCH (08:14)
[2017-07-18] MEDS: ASCORBIC ACID 500 MG TAB PO SCH (08:15)
[2017-07-18] MEDS: OYST-CAL-D 500MG TABLET PO SCH (08:15)
[2017-07-18] MEDS: SERTRALINE HCL 100 MG TAB PO SCH (08:15)
[2017-07-18] MEDS ORDERED: ASCORBIC ACID500 MG PO (10:27)
[2017-07-18] MEDS ORDERED: Calcium Carbonate PO (10:27)
[2017-07-18] MEDS ORDERED: Multivitamins/Minerals PO (10:27)
[2017-07-18] MEDS ORDERED: FEOSOL325 MG PO (10:27)
[2017-07-18] MEDS ORDERED: TYLENOL WITH C1 EACH PO (10:34)
[2017-07-18 12:00] VITALS: BP 107/51
--- NOTE | 2017-07-19 10:29 | Discharge Summary ---
ADMISSION DIAGNOSES 1. Dehydration. 2. Syncope. 3. Collapse. 4. Urinary tract infection. DISCHARGE DIAGNOSES 1. Dehydration. 2. Syncope. 3. Collapse. 4. Urinary tract infection. 5. Fall with L1 right transverse body fracture. 6. Atrial fibrillation. 7. Coronary artery disease. 8. Hypertension. 9. Hyperlipidemia. 10. Anemia. 11. Hypocalcemia. 12. Hypokalemia. HISTORY: Patient has a history of AFib, CAD, status post stent placement, hypertension, hyperlipidemia, CHF, anxiety, depression, and right-sided weakness. HOSPITAL COURSE: A 76-year-old man with right-sided weakness had a fall about 2 days ago. His daughter says that he fell, but did not tell anyone. When they tried to get him up, he was having extreme back pain. Upon admission, a UA was done and antibiotics started for UTI. Once urine culture was complete, the patient did not need antibiotics. Chest x-ray negative. C-spine negative. CT of brain negative. CT of the abdomen negative. X-ray of right knee showed an effusion. Hip x-ray negative. CT of the chest showed possible L1 fracture. Followup MRI was done, and interventional radiology was consulted. The MRI showed no fracture of L1 vertebral body. Acute mild displaced fracture of L1 right transverse process. No other fractures seen. Severe left foraminal narrowing at L5-S1. Moderate right and mild left foraminal narrowing at L4-L5 secondary to degenerative changes. Per IR, kyphoplasty not indicated. Patient is okay to discharge home. PT consulted. Patient sent home with physical therapy, and already has a walker at home. Plavix was held during the hospital stay due to anemia. At the time of discharge, hemoglobin came up to 11.3 with a hematocrit of 33.5. Potassium dropped during the hospital stay, but at the time of discharge potassium was 3.5. Calcium dropped during hospital stay, but at the time of discharge potassium was 8.7. Patient was sent home on Tylenol 3, iron, vitamin C, Os-Moody-D, and multivitamins. Patient is to continue home medicines with new vitamins provided. Patient will follow up with primary care in 1-2 weeks and physical therapy for home health. Patient is to return home with daughter. DICTATED BY SUSI AC NP GRAYSON STEEN MD Job#: [id number] RI
== END 2017-07-18 14:59 | disposition home or self-care (01) | DRG 551 ==
LOC: ER 23:54 → MED/SURG2 07-11 04:51
PROVIDERS: ADMIT Internal Medicine; ATTEND Internal Medicine
DX: S32.018A Other fracture of first lumbar vertebra, initial encounter for closed fracture (principal); A41.9 Sepsis, unspecified organism; N39.0 Urinary tract infection, site not specified; E83.51 Hypocalcemia; I48.91 Unspecified atrial fibrillation; R55 Syncope and collapse; I10 Essential (primary) hypertension; E78.5 Hyperlipidemia, unspecified; E86.0 Dehydration; W01.0XXA Fall on same level from slipping, tripping and stumbling without subsequent striking against object, initial encounter; Y92.019 Unspecified place in single-family (private) house as the place of occurrence of the external cause; I25.10 Atherosclerotic heart disease of native coronary artery without angina pectoris; Z95.5 Presence of coronary angioplasty implant and graft; F41.9 Anxiety disorder, unspecified; M25.461 Effusion, right knee; R53.81 Other malaise; E87.6 Hypokalemia; T50.1X5A Adverse effect of loop [high-ceiling] diuretics, initial encounter; D64.9 Anemia, unspecified
CPT/HCPCS: 36415; 70450; 71010; 71260; 72125; 72148; 74177; 80048; 80053; 80061; 81001; 82150; 82550; 82553; 82607; 82728; 82746; 82948; 83540; 83605; 83690; 83735; 83880; 84466; 84484; 85014; 85018; 85025; 85610; 85730; 86850; 86900; 87040; 87086; 87400; 93005; 96360; 96374; 99284; J0610; J0692; J2270; J2405; J3370; J7030; J7040; J7050; Q9967

== ENCOUNTER 2017-12-18 19:37 | Inpatient (IN) | payer MEDICARE ==
[~2017-12-18] VITALS: Ht 170.2 cm; Wt 67.8 kg
[~2017-12-18 19:37] MED LIST changes: +ASCORBIC ACID500 MG PO; +Calcium Carbonate PO; +FEOSOL325 MG PO; +Multivitamins/Minerals PO; +TYLENOL WITH C1 EACH PO
--- OUTSIDE RECORDS SUMMARY | 2017-12-18 19:40 | XMS REPORT ---
[facility] Address Unknown Phone Unavailable Care Team Providers Care [place] Opener Name Role Phone GRAYSON STEEN Unavailable Unavailable Problems This patient has no known problems. Allergies, Adverse Reactions, Alerts This patient has no known allergies or adverse reactions. Medications This patient has no known medications. Results Test Description Test Time Test Comments Text Results Atomic Results Result Comments HIP RIGHT ONE VW (+/- PELVIS) [place] [address] Patient Name: ROSANA GOSS MR #: [id number] : 1940 Age/Sex: 76/M Req #: [id number] Adm Physician: GRAYSON STEEN MD Ordered by: Mirian Ac [employer] SPECIALIST Report #: [id number] Location: MED/SURG2 Room/Bed: [facility] Procedure: [id number] DX/HIP RIGHT ONE VW (+/- PELVIS) Exam Date: Exam Time: REPORT STATUS: Signed PROCEDURE: HIP RIGHT ONE VW (+/- PELVIS) TECHNIQUE: Portable AP view right hip COMPARISON: None. INDICATIONS: Right hip pain FINDINGS: The right hip is grossly intact and in anatomic alignment. Regional skeleton is intact. Joint space is preserved. Normal regional soft tissues. Study limited by single plane imaging and portable technique. CONCLUSION: Limited study without acute abnormality. Dictated by: Laith Agustin M.D. on 07/15/2017 at 14:58 Electronically approved by: Laith Agustin M.D. on 07/15/2017 at 14:58 Dictated By: LAITH AGUSTIN MD 57 Transcribed By: ANJANA on 07/15/171457 COPY TO: MIRIAN AC NP MRI SPINE LUMBAR WO [place] [address] Patient Name: ROSANA GOSS MR #: [id number] : 1940 Age/Sex: 76/M Req #: [id number] Adm Physician: GRAYSON STEEN MD Ordered by: TAMMY DORADO MD Report #: [id number] Location: MED/SURG2 Room/ Bed: [facility] Procedure: [id number] MRI/MRI SPINE LUMBAR WO Exam Date: 07/14/17 Exam Time: 1500 REPORT STATUS: Signed History: Back pain, L1 fracture Comparison studies: CT abdomen 07/11/2017 Technique: Sagittal, coronal and axial T2 , sagittal T1 and IR, axial spin density oblique. Intravenous contrast: None Findings: Number of lumbar vertebral bodies:5 Alignment: Normal lordosis.Mild levoscoliosis centered at L3 vertebral body. Soft tissues: Mild edema signal adjacent to the L1 right transverse processes. Paraspinal muscles : No signal abnormalities. No atrophy. Lower thoracic cord:Normal in signal and morphology. The tip of the conus is at T12-L1. Cauda equina: No masses. No arachnoiditis. Vertebrae: Acute nondisplaced fracture of L1 right transverse process. No fracture is seen at L1 vertebral body. Mild edema signal at L4 and L5 superior endplates, with associated Schmorl nodes, likely degenerative. The vertebral bodies are normal in height. No compression fractures, infection or neoplasm. Degenerative changes: Diffuse disc degeneration with loss of T2 signal more significant at L5-S1 with decreased intervertebral space. L1-L2: Patent canal and foramina. L2-L3: Patent canal and foramina. L3-L4: Mild diffuse disc bulge, mild facet hypertrophy and ligamentum flavum thickening without significant canal stenosis or foraminal narrowing. Trace of fluid of the bilateral facet joints. L4-L5: Asymmetric left disc bulge, moderate facet hypertrophy and ligamentum flavum thickening results in mild canal stenosis, moderate right and mild left foraminal narrowing. Fluid intensity signal of the bilateral facet joints. L5-S1: Diffuse disc bulge, moderate right and severe left facet hypertrophy with grossly patent canal and severe left foraminal narrowing. Additional findings: None IMPRESSION: No fracture of L1 vertebral body. Acute nondisplaced fracture of L1 right transverse process. No other fracture is seen. Severe left foraminal narrowing at L5-S1 secondary to severe left facet hypertrophy, with possible impingement on the exiting L1 nerve root. Moderate right and mild left foraminal narrowing at L4-L5 secondary to degenerative changes. Diffuse disc degeneration more significant at L5-S1. Mild endplate edema at L4-L5 and L4 superior endplate, likely degenerative. Moderate to severe facet hypertrophy at the lower lumbar spine with synovitis changes at L4-L5. Signed by: DR Curt Strauss M.D. on 07/15/2017 8:16 AM Dictated By: CURT ALVARENGA MD 5 COPY TO: TAMMY SUNSHINE MD KNEE RIGHT THREE VIEWS [place] [address] Patient Name: ROSANA GOSS MR #: [id number] : 1940 Age/Sex: 76/M Req #: [id number] Adm Physician: Ordered by: ROCHELLE OLIVEIRA MD Report #: [id number] Location: ER Room/Bed: Procedure: [id number] DX/KNEE RIGHT THREE VIEWS Exam Date: 07/11/17 Exam Time: 0430 REPORT STATUS: Signed EXAM: KNEE RIGHT THREE VIEWS, AP, lateral and oblique DATE: 07/11/2017 4:11 AM Time stamp on exam: 0119 hours INDICATION: Fall, right knee pain COMPARISON: None FINDINGS: BONES: No acute fractures. JOINTS: No malalignment. SOFT TISSUES: Vascular calcifications. Small joint effusion. IMPRESSION: Small joint effusion. No right knee fracture. Signed by: Dr. Chucky Arora M.D. on 07/11/2017 4:42 AM Dictated By: CHUCKY ARORA MD 1 Transcribed By: BENOIT on 07/11/17441 COPY TO: ROCHELLE OLIVEIRA MD CT BRAIN WO [place] [address] Patient Name: ROSANA GOSS MR #: [id number] : 1940 Age/Sex: 76/M Req #: [id number] Adm Physician: Ordered by: ROCHELLE OLIVEIRA MD Report #: [id number] Location: ER Room/Bed: Procedure: [id number] CT/CT BRAIN WO Exam Date: 07/11/17 Exam Time: 0134 REPORT STATUS: Signed EXAMINATION: Head CT without contrast. HISTORY:Trauma, fall. COMPARISON:None. TECHNIQUE: Multidetector axial images were obtained from the foramen magnum to the vertex without contrast. The images were reconstructed using brain and bone algorithms. Thin section brain images were reformatted into coronal and sagittal planes. Intravenous contrast: None IMAGE QUALITY: Acceptable. FINDINGS: Skull/scalp: No abnormality. Parenchyma: Nonspecific bilateral frontoparietal patchy white matter hypodensity are likely related to small vessel ischemic changes. Cortical-based hypodensity centered in the left inferior frontal gyrus, frontal operculum, insular and subinsular region that extends to the saucedo radiata represents chronic encephalomalacia possibly related to prior vascular insult. No acute major vascular territorial acute infarct. No acute hemorrhage or mass. Arteries: Atherosclerotic calcification in bilateral carotid siphon. Dural sinuses: No abnormal density suggestive of thrombosis. Ventricles: Exvacuodilatation of left lateral ventricle. Moderate compensated dilatation due to volume loss. Extra-axial spaces: No abnormal density. Brain volume: Normal for age. Craniocervical junction: No mass, Chiari malformation, or basilar invagination. Sella: No mass. Paranasal/mastoid sinuses: Imaged portions unremarkable. IMPRESSION: 1. No acute intracranial abnormality, particularly no acute hemorrhage, mass or acute major vascular territorial infarct. 2. 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 3. Mild supratentorial white matter microvascular ischemic changes. Signed by: Dr. Anastasia Gee M.D. on 07/11/2017 2:29 AM Dictated By: ANASTASIA GEE MD 8 Transcribed By: BENOIT on 07/11/17228 COPY TO: ROCHELLE OLIVEIRA MD CT CHEST W [place] [address] Patient Name: ROSANA GOSS MR #: [id number] : 1940 Age/Sex: 76/M Req #: [id number] Adm Physician: Ordered by: ROCHELLE OLIVEIRA MD Report #: [id number] Location: ER Room/Bed: Procedure: [id number] CT/CT CHEST W Exam Date: 07/11/17 Exam Time: 0134 REPORT STATUS: Signed EXAM: CT CHEST, ABDOMEN, PELVIS with IV CONTRAST DATE: 07/11/2017 12:18 AM Time stamp on Exam: 0145 hours INDICATION: Fall , pain to entire right side COMPARISON: None TECHNIQUE: The chest, abdomen and pelvis were scanned using a multidetector helical scanner. Coronal and sagittal reformations were obtained. Routine protocol performed. IV Contrast: 100 cc Isovue-370 Oral Contrast: None CTDIvol has been reviewed. It is below the limits set by the Radiation Protocol Committee (RPC) . FINDINGS: LUNGS AND AIRWAYS: No consolidations PLEURA: No effusions or pneumothorax HEART, MEDIASTINUM, VESSELS: No evidence of acute traumatic thoracic aortic injury. No mediastinal hematoma. LIVER: No lacerations or hematoma BILIARY: Normal gallbladder. No ductal dilation. SPLEEN: No lacerations or hematoma PANCREAS: No lacerations or hematoma ADRENALS: No hemorrhage KIDNEYS: Symmetric perfusion. No enhancing masses. No hydronephrosis. GI TRACT: No distention, wall thickening or evidence of obstruction. VESSELS: No evidence of acute injury. Atherosclerotic changes without aneurysm. PERITONEUM/RETROPERITONEUM: No free air or fluid LYMPH NODES: No lymphadenopathy REPRODUCTIVE ORGANS: Unremarkable BLADDER : Decompressed by Torres catheter. SOFT TISSUES: Unremarkable BONES: Old right posterior ninth through 11th fractures. Age-indeterminate nondisplaced fracture of the right L1 transverse process. IMPRESSION: No evidence of acute injury to the chest. Age-indeterminate, possibly acute nondisplaced fracture of the right L1 transverse process. No intraabdominal or pelvic abnormality. Signed by: Dr. Chucky Arora M.D. on 2016 2:33 AM Dictated By: CHUCKY ARORA MD 2 Transcribed By: BENOIT on 07/11/17232 COPY TO: ROCHELLE OLIVEIRA MD CT ABDOMEN/PELVIS W [place] [address] Patient Name: ROSANA GOSS MR #: [id number] : 1940 Age/Sex: 76/M Req #: [id number] Adm Physician: Ordered by: ROCHELLE OLIVEIRA MD Report #: [id number] Location: ER Room/Bed: Procedure: [id number] CT/CT ABDOMEN/PELVIS W Exam Date: 07/11/17 Exam Time: 0134 REPORT STATUS: Signed EXAM: CT CHEST, ABDOMEN, PELVIS with IV CONTRAST DATE: 07/11/2017 12:18 AM Time stamp on Exam : 0145 hours INDICATION: Fall, pain to entire right side COMPARISON: None TECHNIQUE: The chest, abdomen and pelvis were scanned using a multidetector helical scanner. Coronal and sagittal reformations were obtained. Routine protocol performed. IV Contrast: 100 cc Isovue-370 Oral Contrast: None CTDIvol has been reviewed. It is below the limits set by the Radiation Protocol Committee (RPC). FINDINGS: LUNGS AND AIRWAYS: No consolidations PLEURA: No effusions or pneumothorax HEART, MEDIASTINUM, VESSELS: No evidence of acute traumatic thoracic aortic injury. No mediastinal hematoma. LIVER: No lacerations or hematoma BILIARY: Normal gallbladder. No ductal dilation. SPLEEN: No lacerations or hematoma PANCREAS: No lacerations or hematoma ADRENALS: No hemorrhage KIDNEYS: Symmetric perfusion. No enhancing masses. No hydronephrosis. GI TRACT: No distention, wall thickening or evidence of obstruction. VESSELS: No evidence of acute injury. Atherosclerotic changes without aneurysm. PERITONEUM/RETROPERITONEUM: No free air or fluid LYMPH NODES: No lymphadenopathy REPRODUCTIVE ORGANS : Unremarkable BLADDER: Decompressed by Torres catheter. SOFT TISSUES: Unremarkable BONES: Old right posterior ninth through 11th fractures. Age- indeterminate nondisplaced fracture of the right L1 transverse process. IMPRESSION: No evidence of acute injury to the chest. Age-indeterminate, possibly acute nondisplaced fracture of the right L1 transverse process. No intraabdominal or pelvic abnormality. Signed by: Dr. Chucky Arora M.D. on 07/11/2017 2:33 AM Dictated By: CHUCKY ARORA MD 2 Transcribed By: BENOIT on 07/11/17232 COPY TO: ROCHELLE OLIVEIRA MD CT CERVICAL SPINE WO [place] [address] Patient Name: ROSANA GOSS MR #: [id number] : 1940 Age/Sex: 76/M Req #: [id number] Adm Physician: Ordered by: ROCHELLE OLIVEIRA MD Report #: [id number] Location: ER Room/Bed: Procedure: [id number] CT/CT CERVICAL SPINE WO Exam Date: 07/11/17 Exam Time: 0134 REPORT STATUS: Signed History: Trauma, fall. Comparison studies: None Technique: Axial images were obtained through the cervical region.. Coronal and sagittal images reconstructed from the axial data.. Intravenous contrast: None Findings: Fractures: None. Soft tissue injuries: None. Atlantoaxial articulation: Intact. Alignment: Loss of normal cervical lordosis may be positional or due to muscle spasm. No scoliosis. Cervicomedullary junction: No abnormalities. The foramen magnum is patent. Soft tissues: No abnormalities. Vertebrae: No fractures, infection or neoplasm. Degenerative changes: Advanced degenerative changes in the anterior atlantodental joint. C2-C3: Advanced left facet arthrosis without significant foraminal stenosis. C3-C4: Moderate degenerative disc disease. Posterior disc osteophyte complex without canal stenosis. Mild left foraminal stenosis due to facet and uncovertebral arthrosis. C4-C5: Severe degenerative disc disease. Posterior disc osteophyte complex without significant canal stenosis. Severe bilateral foraminal stenosis due to facet and uncovertebral arthrosis. C5-C6: Moderate degenerative disc disease. Severe right and mild left foraminal stenosis due to facet and uncovertebral arthrosis. C6-C7: Severe degenerative disc disease. Posterior disc osteophyte complex without canal stenosis. Moderate right and severe left foraminal stenosis due to facet and uncovertebral arthrosis. C7-T1: Severe degenerative disc disease. Severe left foraminal stenosis due to facet and uncovertebral arthrosis. IMPRESSION: 1. No acute cervical spine fracture. Loss of normal cervical lordosis may be positional or due to muscle spasm. 2. Ligament , spinal cord and or vascular abnormalities cannot be excluded on the basis of this examination. 3. Cervical spondylosis as detailed above. Signed by: Dr. Anastasia Gee M.D. on 07/11/2017 2:34 AM Dictated By : ANASTASIA GEE MD 3 Transcribed By: BENOIT on 07/11/17233 COPY TO: ROCHELLE OLIVEIRA MD [facility] ([place] [address] Patient Name: ROSANA GOSS MR #: [id number] : 1940 Age/Sex: 76/M Req #: [id number] Adm Physician: Ordered by: ROCHELLE OLIVEIRA MD Report #: [id number] Location: Room/Bed: Procedure: [id number] DX/CHEST SINGLE (PORTABLE) Exam Date: 07/11/17 Exam Time: 0140 REPORT STATUS: Signed EXAM: CHEST SINGLE (PORTABLE), AP 1 view DATE: 07/11/2017 12:18 AM Time stamp on exam: 2248 hours INDICATION: Right-sided rib pain COMPARISON: None FINDINGS: LINES/TUBES: None LUNGS: No consolidations or edema. PLEURA: No effusions or pneumothorax. HEART AND MEDIASTINUM: Normal size and contour. BONES AND SOFT TISSUES: No acute findings. IMPRESSION: No acute thoracic abnormality. Signed by: Dr. Chucky Arora M.D. on 07/11 2:35 AM Dictated By: CHUCKY ARORA MD 4 Transcribed By: BENOIT on 07/11/17234 COPY TO: ROCHELLE OLIVEIRA MD
[2017-12-18 20:14] LABS: BASOPHILS # (AUTO) 0.1 (0.0-0.1); BASOPHILS % 0.5 % (0.0-1.0); EOSINOPHILS % 0.1 % (0.0-6.0); HEMOGLOBIN 15.5 g/dL (14.0-18.0); LYMPHOCYTES # (AUTO) 1.2 (1.0-3.2); LYMPHOCYTES % 11.2 % (18.0-39.1); MEAN CORPUSCULAR HEMOGLOBIN 29.9 pg (28-32); MEAN CORPUSCULAR HGB CONC 33.7 g/dL (31-35); MEAN CORPUSCULAR VOLUME 88.8 fL (81-99); MONOCYTES # (AUTO) 1.1 (0.2-0.8); MONOCYTES % 9.9 % (4.4-11.3); NEUTROPHILS # (AUTO) 8.5 (2.1-6.9); PLATELET COUNT 231 x10e3/uL (140-360); RED BLOOD COUNT 5.18 x10e6/uL (4.3-5.7); RED CELL DISTRIBUTION WIDTH 13.5 % (11.7-14.4)
[2017-12-18] MEDS ORDERED: ONDANSETRON HCL 4 MG ORAL DISINTEGRATING TAB PO ONE (20:15)
[2017-12-18 20:19] LABS: INR 1.19; PROTHROMBIN TIME 14.2 seconds (11.9-14.5)
[2017-12-18 20:20] LABS: PARTIAL THROMBOPLASTIN TIME 32.8 seconds (23.8-35.5)
[2017-12-18] MEDS ORDERED: ACETAMINOPHEN 1000 MG/100 ML IV STA (20:25)
[2017-12-18 20:28] LABS: ALANINE AMINOTRANSFERASE 8 IU/L (0-55); ALBUMIN 3.8 g/dL (3.5-5.0); ALKALINE PHOSPHATASE 92 IU/L (40-150); AMYLASE 62 U/L (25-125); ANION GAP 13.5 mmol/L (8-16); BLOOD UREA NITROGEN 12 mg/dL (7-26); BUN/CREATININE RATIO 12 (6-25); CALCIUM 9.1 mg/dL (8.4-10.2); CARBON DIOXIDE 21 mmol/L (22-29); CHLORIDE 105 mmol/L (98-107); CREATINE KINASE 44 IU/L (30-200); CREATININE, SERUM 1.01 mg/dL (0.72-1.25); EST GLOMERULAR FILTRATION RATE > 60 ML/MIN (60-); GLUCOSE 98 mg/dL (74-118); LIPASE 8 U/L (8-78); POTASSIUM 3.5 mmol/L (3.5-5.1); SODIUM 136 mmol/L (136-145)
[2017-12-18] MEDS ORDERED: SODIUM CHLORIDE 0.9% 50ML 50 ML ONE (20:47)
[2017-12-18] MEDS ORDERED: IOPAMIDOL 370 MG/ML 200 ML INFUS..BTL INJ ONE (20:48)
[2017-12-18] MEDS ORDERED: DILTIAZEM HCL 100 ML IV STA (21:45)
[2017-12-18] MEDS ORDERED: SODIUM CHLORIDE 0.9% 100 ML ONE (21:45)
[2017-12-18] MEDS ORDERED: DILTIAZEM HCL IV 5MG/ML 25 ML VIAL ONE (21:46)
[2017-12-18] MEDS ORDERED: DILTIAZEM HCL IV SOLN 125 MG in SODIUM CHLORIDE 0.9% 100 ML 100 ML IV SCH (22:00)
--- NOTE | 2017-12-18 22:05 | Diagnostic Imaging Report ---
CHEST SINGLE (PORTABLE), 12/18/2017 8:06 PM Technique: CHEST SINGLE (PORTABLE) Comparison: 07/10/2017 Clinical history: Atrial fibrillation Findings: See Impression Impression: Limited portable view with motion artifact. 1. Moderately enlarged cardiomediastinal silhouette. 2. Diffuse opacities, likely a component of underlying edema. 3. Right basilar opacity which may reflect pleural fluid and atelectasis. Cannot exclude pneumonia in the proper clinical context. Recommend upright PA and lateral when feasible. Signed by: Dr Loren Goss MD on 12/18/2017 10:01 PM
--- NOTE | 2017-12-18 22:15 | Diagnostic Imaging Report ---
EXAM: CT ABDOMEN/PELVIS W DATE: 12/18/2017 8:06 PM INDICATION: Abdominal pain COMPARISON: None TECHNIQUE: The abdomen and pelvis were scanned using a multidetector helical scanner. Coronal and sagittal reformations were obtained. Routine protocol performed. IV Contrast: 100 ml Isovue 300/370 FINDINGS: LOWER THORAX: Cardiomegaly with coronary artery, mitral annulus, and aortic calcifications. Small right effusion. Right basilar groundglass opacity. Minimal left basilar atelectasis. Aortic calcifications. LIVER/BILIARY: No masses. No ductal dilatation. GALLBLADDER: Unremarkable SPLEEN: Unremarkable PANCREAS: Unremarkable ADRENALS: No nodules KIDNEYS: Symmetric perfusion. No enhancing masses. No hydronephrosis. GI TRACT: No wall thickening or evidence of obstruction. Diverticulosis. Appendix is not visualized. VESSELS: Moderate atherosclerotic disease. PERITONEUM/RETROPERITONEUM: No free air or fluid LYMPH NODES: No lymphadenopathy REPRODUCTIVE ORGANS/BLADDER: Unremarkable BONES: Healed right rib and right L1 transverse process fractures. Degenerative changes, worse at L5-S1. IMPRESSION: 1. No acute abnormality in the abdomen or pelvis. 2. Small right effusion with right basilar opacity which could reflect atelectasis or infection in the proper clinical context. Signed by: Dr Loren Goss MD on 12/18/2017 10:12 PM
[2017-12-18 23:20] LABS: CLARITY,URINE CLEAR (CLEAR); COLOR,URINE AMBER (YELLOW); KETONES,URINE 1+ (NEGATIVE); LEUKOCYTE ESTERASE ,URINE NEGATIVE (NEGATIVE); NITRITE,URINE NEGATIVE (NEGATIVE); PROTEIN,URINE DIPSTICK 2+ (NEGATIVE); URINE UROBILINOGEN 1 mg/dL (0.2 - 1)
[2017-12-18 23:21] LABS: BILIRUBIN,URINE 1+ (NEGATIVE)
[2017-12-18 23:35] LABS: EPITHELIAL CELLS,URINE RARE /LPF; MUCUS,URINE FEW (RARE); RBC,URINE 0-5 /HPF (0-5); WBC,URINE (MAN) 0-5 /HPF (0-5)
[2017-12-18] MEDS ORDERED: ASPIRIN 81 MG CHEW TAB PO ONE (23:45)
[2017-12-19] VITALS (73 sets, daily range): BP systolic 62–180; BP diastolic 32–97
[2017-12-19] MEDS ORDERED: MORPHINE SULFATE 2 MG/ML SYR ONE (01:31)
[2017-12-19] MEDS: MORPHINE SULFATE 2 MG/ML SYR IV PRN ×4 (01:38→23:57)
[2017-12-19] MEDS ORDERED: NITROGLYCERIN 0.4 MG SUBL SL PRN (02:00)
[2017-12-19 04:47] LABS: BASOPHILS # (AUTO) 0.1 (0.0-0.1); BASOPHILS % 0.4 % (0.0-1.0); EOSINOPHILS % 0.2 % (0.0-6.0); HEMATOCRIT 43.9 % (38.2-49.6); HEMOGLOBIN 15.1 g/dL (14.0-18.0); LYMPHOCYTES # (AUTO) 1.1 (1.0-3.2); LYMPHOCYTES % 8.5 % (18.0-39.1); MEAN CORPUSCULAR HEMOGLOBIN 30.1 pg (28-32); MEAN CORPUSCULAR HGB CONC 34.4 g/dL (31-35); MEAN CORPUSCULAR VOLUME 87.5 fL (81-99); MONOCYTES # (AUTO) 1.5 (0.2-0.8); MONOCYTES % 11.4 % (4.4-11.3); NEUTROPHILS # (AUTO) 10.1 (2.1-6.9); PLATELET COUNT 216 x10e3/uL (140-360); RED BLOOD COUNT 5.02 x10e6/uL (4.3-5.7); RED CELL DISTRIBUTION WIDTH 13.7 % (11.7-14.4)
[2017-12-19 05:05] LABS: ANION GAP 13.6 mmol/L (8-16); BLOOD UREA NITROGEN 11 mg/dL (7-26); BUN/CREATININE RATIO 13 (6-25); CALCIUM 8.9 mg/dL (8.4-10.2); CARBON DIOXIDE 21 mmol/L (22-29); CHLORIDE 107 mmol/L (98-107); CREATININE, SERUM 0.83 mg/dL (0.72-1.25); EST GLOMERULAR FILTRATION RATE > 60 ML/MIN (60-); GLUCOSE 96 mg/dL (74-118); POTASSIUM 3.6 mmol/L (3.5-5.1); SODIUM 138 mmol/L (136-145)
[2017-12-19] MEDS: SERTRALINE HCL 100 MG TAB PO SCH (08:50)
[2017-12-19] MEDS: CLOPIDOGREL BISULFATE 75 MG TAB PO SCH (08:50)
[2017-12-19] MEDS: POTASSIUM CHLORIDE 10 MEQ TABCR PO SCH (08:50)
[2017-12-19] MEDS: FUROSEMIDE 20 MG TAB PO SCH (08:50)
[2017-12-19] MEDS ORDERED: CARVEDILOL 12.5 MG TAB PO SCH (09:00)
[2017-12-19] MEDS ORDERED: ISOSORBIDE MONONITRATE 30 MG TAB CR PO SCH (09:00)
[2017-12-19] MEDS ORDERED: NON-FORMULARY MEDICATION (Isosorbide Mononitrate (Isosorbide Mononitrate Er) 60 MG) PO SCH (09:00)
[2017-12-19] MEDS ORDERED: NON-FORMULARY MEDICATION (Carvedilol 25 MG) PO SCH (09:00)
[2017-12-19] MEDS ORDERED: SODIUM CHLORIDE 0.9% 500ML 500 ML ONE (10:40)
[2017-12-19] MEDS: ENOXAPARIN INJ 80 MG/0.8 ML SYR SC SCH ×2 (11:30→20:05)
[2017-12-19] MEDS: SODIUM CHLORIDE 0.9% 1000ML 1,000 ML IV SCH (12:45)
[2017-12-19] MEDS ORDERED: ACETAMINOPHEN 325 MG TAB PO PRN (13:00)
[2017-12-19] MEDS: ONDANSETRON HCL INJ 2 MG/ML VIAL IV PRN ×2 (14:00→20:06)
--- NOTE | 2017-12-19 14:57 | Consultation ---
DATE OF CONSULTATION: December 19, 2017 REQUESTING PHYSICIAN: Dr. Urias REASON FOR CONSULTATION: Atrial fibrillation. HISTORY OF PRESENT ILLNESS: Mr. Streeter is a 77-year-old gentleman with past medical history as listed below. He presented with complaints of right lower abdominal pain. Reportedly started experiencing pain yesterday. He was noted to be in atrial fibrillation with rapid ventricular rate and was started on a diltiazem drip. His heart rate slowed down. This morning his blood pressure apparently was in the 170s, and he received all of his high blood pressure medications. Now, his blood pressure has dropped to the 70s. His heart rate has gone down to the 60s. His diltiazem drip has been stopped. Patient states he still has some discomfort in his belly but denies any chest pain, shortness of breath or palpitations. No vomiting, but has had loose stools as per the nurse. No blood in his stools. Patient states that he has a history of atrial fibrillation. He has not been on any anticoagulation and does not want any either. Patient denies any dizziness. History is also obtained from the nurse and the chart. REVIEW OF SYMPTOMS CONSTITUTIONAL: Has fatigue and weakness. HEENT: No headache, blurring of vision, seizures, syncope. CARDIOVASCULAR: No chest pain or dyspnea. Had palpitations. RESPIRATORY: No cough, fever or expectoration. GI: Has abdominal pain, no vomiting. Has diarrhea. : No dysuria, frequency or incontinence. ALLERGIES: SEE LIST. MEDICATIONS: See list. PAST MEDICAL HISTORY 1. History of hypertension. 2. History of hyperlipidemia. 3. Questionable history of atrial fibrillation. SOCIAL HISTORY: The patient states he drinks a beer a day and has been drinking for many years. Apparently, the daughter had mentioned to the nurse that he drinks heavily at times. He smokes, does not quantify. FAMILY HISTORY: Noncontributory. PHYSICAL EXAMINATION GENERAL: Moderately built and nourished gentleman. He is awake, not in any distress. Appears a little lethargic. VITALS: Heart rate is 62 on the monitor. Blood pressure was in the 170s, now it is in the 70s. Respiratory rate is 18. Temperature is 100.7. HEENT: Atraumatic. NECK: No JVD, bruit, thyromegaly, lymphadenopathy. CARDIOVASCULAR: The 1st and 2nd heart sounds heard. No murmurs, rubs or gallops appreciated. CHEST: Decreased air entry at the bases. No adventitious sounds appreciated. ABDOMEN: Soft. Mild tenderness at the right lower quadrant. EXTREMITIES: No edema. LABS: Sodium 138, potassium 3.6, chloride 107, bicarb 21, BUN 11, creatinine 0.8. Glucose is 96. Hemoglobin 15.1, hematocrit 43.9, platelets 216. White count is 12.7. EKG shows atrial fibrillation at 109 beats per minute, left axis deviation, left ventricular hypertrophy with secondary ST-T changes. IMPRESSION 1. Abdominal pain. 2. Atrial fibrillation rapid ventricular rate. 3. History of hypertension, currently hypotensive. 4. History of hyperlipidemia. 5. History of alcohol and tobacco use. PLAN 1. The patient's heart rate has come down. Diltiazem drip has been stopped. 2. Patient's blood pressure now is on the lower side. He was hypotensive earlier. Will give him IV fluids. 3. Hold all antihypertensives. 4. Get echocardiogram to assess LV function and valvular function. 5. Patient is not anemic. Start him on Lovenox. 6. Will start on long-term anticoagulation depending on clinical course. At the current time, the patient does not want blood thinners. 7. Check thyroid function test. 8. Further cardiac workup depending on clinical course. As always, I appreciate and thank you very much for your referrals. Job#: [id number] [place]
[2017-12-19 15:55] LABS: CREATINE KINASE MB 0.8 ng/mL (0-5.0)
[2017-12-19] MEDS: PANTOPRAZOLE 40 MG 10ML VIAL IV SCH (16:58)
[2017-12-19] MEDS: METOCLOPRAMIDE HCL 10 MG/2ML VIAL IV SCH ×2 (16:58→20:04)
[2017-12-19] MEDS: ATORVASTATIN 40 MG TAB PO SCH (20:04)
[2017-12-19] MEDS ORDERED: NON-FORMULARY MEDICATION (Lisinopril 5 MG) PO SCH (21:00)
[2017-12-19] MEDS ORDERED: ENOXAPARIN SOD INJ 60 MG/0.6 ML SYR SC SCH (21:00)
[2017-12-19] MEDS ORDERED: LISINOPRIL 2.5 MG TAB PO SCH (21:00)
[2017-12-19] MEDS ORDERED: NON-FORMULARY MEDICATION (Atorvastatin Calcium 40 MG) PO SCH (21:00)
[2017-12-19] MEDS: ALBUTEROL SULF 0.083% NEB SOLN 3 ML NEB NEB PRN (23:00)
[2017-12-20] VITALS (26 sets, daily range): BP systolic 112–190; BP diastolic 53–110
[2017-12-20] MEDS: HYDROCODONE/APAP 5MG-325MG TAB PO PRN ×2 (03:19→20:47)
[2017-12-20] MEDS: MORPHINE SULFATE 2 MG/ML SYR IV PRN ×4 (03:22→23:45)
[2017-12-20] MEDS: ALBUTEROL SULF 0.083% NEB SOLN 3 ML NEB NEB PRN ×2 (04:01→10:45)
[2017-12-20 05:37] LABS: BASOPHILS % 0.3 % (0.0-1.0); EOSINOPHILS % 0.2 % (0.0-6.0); HEMATOCRIT 37.2 % (38.2-49.6); HEMOGLOBIN 12.7 g/dL (14.0-18.0); LYMPHOCYTES # (AUTO) 1.2 (1.0-3.2); LYMPHOCYTES % 8.3 % (18.0-39.1); MEAN CORPUSCULAR HEMOGLOBIN 30.2 pg (28-32); MEAN CORPUSCULAR HGB CONC 34.1 g/dL (31-35); MEAN CORPUSCULAR VOLUME 88.4 fL (81-99); MONOCYTES # (AUTO) 1.5 (0.2-0.8); NEUTROPHILS # (AUTO) 11.9 (2.1-6.9); NEUTROPHILS % 80.7 % (38.7-80.0); PLATELET COUNT 209 x10e3/uL (140-360); RED BLOOD COUNT 4.21 x10e6/uL (4.3-5.7); RED CELL DISTRIBUTION WIDTH 13.6 % (11.7-14.4)
[2017-12-20 05:56] LABS: ANION GAP 13.7 mmol/L (8-16); BLOOD UREA NITROGEN 24 mg/dL (7-26); BUN/CREATININE RATIO 21 (6-25); CALCIUM 8.7 mg/dL (8.4-10.2); CARBON DIOXIDE 19 mmol/L (22-29); CHLORIDE 108 mmol/L (98-107); CREATININE, SERUM 1.17 mg/dL (0.72-1.25); EST GLOMERULAR FILTRATION RATE > 60 ML/MIN (60-); GLUCOSE 100 mg/dL (74-118); POTASSIUM 3.7 mmol/L (3.5-5.1); SODIUM 137 mmol/L (136-145)
[2017-12-20] MEDS: SERTRALINE HCL 100 MG TAB PO SCH (06:09)
[2017-12-20] MEDS: POTASSIUM CHLORIDE 10 MEQ TABCR PO SCH ×2 (06:09→11:35)
[2017-12-20] MEDS: FUROSEMIDE 20 MG TAB PO SCH ×2 (06:09→11:35)
[2017-12-20] MEDS: CLOPIDOGREL BISULFATE 75 MG TAB PO SCH ×2 (06:09→11:34)
--- NOTE | 2017-12-20 06:27 | Diagnostic Imaging Report ---
CHEST SINGLE (PORTABLE), 12/20/2017 5:00 AM Technique: CHEST SINGLE (PORTABLE) Comparison: 12/18/2017 Clinical history: Congestive heart failure Findings: See Impression Impression: Limited portable view with motion artifact. 1. Moderately enlarged cardiomediastinal silhouette. 2. Central vascular congestion and/or mild edema. 3. Small right effusion with associated right basilar atelectasis or consolidation. Signed by: Dr Loren Goss MD on 12/20/2017 6:23 AM
[2017-12-20 06:37] LABS: FREE T4 (FREE THYROXINE) 0.86 ng/dL (0.9-1.8); THYROID STIMULATING HORMONE 1.94 uIU/mL (0.350-4.940)
[2017-12-20] MEDS: SODIUM CHLORIDE 0.9% 1000ML 1,000 ML IV SCH (07:25)
[2017-12-20] MEDS: ENOXAPARIN INJ 80 MG/0.8 ML SYR SC SCH ×2 (07:46→20:46)
[2017-12-20] MEDS: METOCLOPRAMIDE HCL 10 MG/2ML VIAL IV SCH ×4 (07:46→20:45)
[2017-12-20] MEDS: PANTOPRAZOLE 40 MG 10ML VIAL IV SCH ×2 (07:46→16:17)
[2017-12-20] MEDS ORDERED: SINCALIDE 3 MCG/VIAL INJ ONE (09:00)
--- NOTE | 2017-12-20 10:33 | Diagnostic Imaging Report ---
Hepatobiliary Scan with Gallbladder Ejection Fraction Clinical information: 77 M with RUQ abdominal pain Report: Following intravenous administration of 7 millicuries of Tc-99m mebrofenin, dynamic images of the abdomen in the anterior projection were obtained through 50 minutes. Sincalide (CCK analog) 1.5 micrograms was administered intravenously over 30 minutes with additional imaging for determination of gallbladder ejection fraction. Perfusion to the liver is normal. Extraction of tracer from the blood pool by the liver parenchyma is normal. Tracer is seen promptly within the biliary tract. The gallbladder begins to fill by 15 minutes post-injection of tracer and fills adequately. Tracer is seen in the small bowel by 38 minutes. The gallbladder ejection fraction with administration of sincalide is 46% (normal greater than 40%). Impression: 1. Filling of the gallbladder excludes the diagnosis of acute cystic duct obstruction/acute cholecystitis. 2. Normal gallbladder ejection fraction of 46% does not support the clinical diagnosis of chronic cholecystitis/gallbladder dyskinesia. Signed by: Dr. Nessa Simpson M.D. on 12/20/2017 10:29 AM
[2017-12-20] MEDS ORDERED: METOPROLOL TARTRATE 25 MG TAB PO SCH (11:00)
[2017-12-20] MEDS: METRONIDAZOLE 500MG/NS 100ML 100 ML IV SCH ×2 (14:39→20:46)
[2017-12-20] MEDS: CEFEPIME HCL 1 GM VIAL IV SCH (14:43)
[2017-12-20] MEDS: ATORVASTATIN 40 MG TAB PO SCH (20:45)
[2017-12-20] MEDS: METOPROLOL TARTRATE 25 MG TAB PO SCH (20:46)
[2017-12-20] MEDS: ONDANSETRON HCL INJ 2 MG/ML VIAL IV PRN (21:00)
--- NOTE | 2017-12-20 21:47 | Consultation ---
DATE OF CONSULTATION: December 20, 2017 REASON FOR CONSULTATION: Patient is concerned about sepsis. HISTORY OF PRESENT ILLNESS: This patient who is very pleasant 77-year-old gentleman male, who has history of hypertension, hyperlipidemia, atrial fibrillation, who comes in with abdominal pain for 5 days. The patient have abdominal pain, epigastric area. The patient, apparently, had episode of diarrhea also. The patient comes into the hospital. He was found to be in atrial fibrillation. He was admitted currently in the intensive care unit, looks a little bit uncomfortable, has no complaint except abdominal pain. Patient has been seen by cardiology and GI. PAST MEDICAL HISTORY: Hypertension, hyperlipidemia, atrial fibrillation. PAST SURGICAL HISTORY: Denies. ALLERGIES: NKA. SOCIAL HISTORY: He drinks 1 beer a day. He smoked less than a pack a day. LABS ON ADMISSION: White count is 10.96, today is 14.7, hemoglobin 12.7, hematocrit 37. Sodium 137, potassium 3.7, creatinine 1.17. TSH 1.94. Liver enzymes were within normal limits. AST, ALT, albumin 3.8, lipase 8. His white count 14.7, hemoglobin 12.7, his platelet 209,000, lympho 8.3. Blood cultures, urine cultures are negative so far. He had a chest x-ray, which was mildly enlarged cardiomegaly, diffuse opacity likely edema, pleural effusion on the right. He had CT of abdomen and pelvis, no acute abnormality. He had a HIDA scan with normal ejection fraction. Patient is currently on K-Dur, Lasix, metoclopramide or Reglan, morphine, Lovenox. PHYSICAL EXAMINATION GENERAL: He is currently alert, oriented, does not seem to be in acute distress. VITALS: When he first came here, he was running 100.7, but not now. HEENT: Normocephalic. NECK: Supple. CHEST: Clear, bilateral coarse. CARDIAC: S1, S2. No murmur. ABDOMEN: Soft. Epigastric tenderness was noted. EXTREMITIES: No edema. SKIN: No rash. NEURO: Nonfocal. IMPRESSION: Leukocytosis, abdominal pain. Computerized axial tomography scan was negative. Will put the patient on cefepime and Flagyl while waiting for the blood cultures. Had episode of diarrhea persist. Will order stool study, but there is nothing now apparently. Recheck CBC, recheck chem panel. Monitor patient clinically closely with you. Will follow. Job#: [id number] CQ
[2017-12-21] VITALS (19 sets, daily range): BP systolic 134–189; BP diastolic 59–103
[2017-12-21] MEDS: CEFEPIME HCL 1 GM VIAL IV SCH ×2 (01:41→13:47)
[2017-12-21] MEDS: MORPHINE SULFATE 2 MG/ML SYR IV PRN ×2 (04:45→13:50)
[2017-12-21] MEDS: SODIUM CHLORIDE 0.9% 1000ML 1,000 ML IV SCH (04:55)
[2017-12-21] MEDS: METRONIDAZOLE 500MG/NS 100ML 100 ML IV SCH ×3 (04:55→21:07)
[2017-12-21 05:47] LABS: BASOPHILS # (AUTO) 0.1 (0.0-0.1); BASOPHILS % 0.4 % (0.0-1.0); EOSINOPHILS % 0.2 % (0.0-6.0); HEMOGLOBIN 13.1 g/dL (14.0-18.0); LYMPHOCYTES % 8.7 % (18.0-39.1); MEAN CORPUSCULAR HEMOGLOBIN 30.4 pg (28-32); MEAN CORPUSCULAR HGB CONC 33.6 g/dL (31-35); MEAN CORPUSCULAR VOLUME 90.5 fL (81-99); MONOCYTES # (AUTO) 1.1 (0.2-0.8); MONOCYTES % 9.2 % (4.4-11.3); NEUTROPHILS # (AUTO) 9.7 (2.1-6.9); NEUTROPHILS % 80.8 % (38.7-80.0); PLATELET COUNT 229 x10e3/uL (140-360); RED BLOOD COUNT 4.31 x10e6/uL (4.3-5.7); RED CELL DISTRIBUTION WIDTH 13.5 % (11.7-14.4)
[2017-12-21 06:11] LABS: BLOOD UREA NITROGEN 24 mg/dL (7-26); BUN/CREATININE RATIO 23 (6-25); CARBON DIOXIDE 22 mmol/L (22-29); CHLORIDE 109 mmol/L (98-107); CREATININE, SERUM 1.05 mg/dL (0.72-1.25); EST GLOMERULAR FILTRATION RATE > 60 ML/MIN (60-); GLUCOSE 81 mg/dL (74-118); MAGNESIUM 1.7 MG/DL (1.3-2.1); SODIUM 141 mmol/L (136-145)
[2017-12-21] MEDS: METOCLOPRAMIDE HCL 10 MG/2ML VIAL IV SCH ×4 (08:23→20:06)
[2017-12-21] MEDS: PANTOPRAZOLE 40 MG 10ML VIAL IV SCH ×2 (08:23→17:18)
[2017-12-21] MEDS: SERTRALINE HCL 100 MG TAB PO SCH (08:24)
[2017-12-21] MEDS: ENOXAPARIN INJ 80 MG/0.8 ML SYR SC SCH ×2 (08:24→20:06)
[2017-12-21] MEDS: POTASSIUM CHLORIDE 10 MEQ TABCR PO SCH (08:24)
[2017-12-21] MEDS: METOPROLOL TARTRATE 25 MG TAB PO SCH ×2 (08:24→21:00)
[2017-12-21] MEDS: FUROSEMIDE 20 MG TAB PO SCH (08:24)
[2017-12-21] MEDS: HYDROCODONE/APAP 5MG-325MG TAB PO PRN (09:03)
[2017-12-21] MEDS: ALBUTEROL SULF 0.083% NEB SOLN 3 ML NEB NEB SCH ×2 (14:42→18:00)
--- NOTE | 2017-12-21 16:43 | Progress Note ---
DATE: December 21, 2017 SUBJECTIVE: Mr. Streeter continued to have abdominal pain. There are no new complaints. Otherwise, he has some nausea. He is not eating well. He says when he eats, he gets worsening pain. His is at the bedside. OBJECTIVE GENERAL: The patient is currently lying in bed comfortably. Alert, oriented, does not seem to be in any acute distress. VITAL SIGNS: Stable, currently afebrile. HEENT: Not icteric. NECK: Supple. CHEST: Clear bilaterally. ABDOMEN: Soft. Bowel sounds present. Diffuse discomfort. IMPRESSION: Abdominal pain, getting worse with food, concerned about ischemic gut. Will get an MRA. The patient does have history of stroke, history of smoking. Cardiology is following. Will follow. Job#: [id number]
[2017-12-21] MEDS: METOPROLOL TARTRATE INJ 1 MG/ML VIAL IV PRN (20:00)
[2017-12-21] MEDS: ATORVASTATIN 40 MG TAB PO SCH (20:06)
[2017-12-21] MEDS ORDERED: SODIUM CHLORIDE 0.9% 250ML 250 ML ONE (20:10)
[2017-12-21] MEDS: LISINOPRIL 2.5 MG TAB PO SCH (21:00)
[2017-12-22] VITALS (7 sets, daily range): BP systolic 120–182; BP diastolic 58–79
[2017-12-22] MEDS: CEFEPIME HCL 1 GM VIAL IV SCH ×2 (01:30→13:20)
[2017-12-22] MEDS: METRONIDAZOLE 500MG/NS 100ML 100 ML IV SCH ×3 (05:09→21:48)
[2017-12-22] MEDS: HYDRALAZINE HCL 20 MG/ML VIAL IV PRN (05:16)
[2017-12-22] MEDS: ALBUTEROL SULF 0.083% NEB SOLN 3 ML NEB NEB SCH ×2 (06:00)
[2017-12-22] MEDS: METOPROLOL TARTRATE INJ 1 MG/ML VIAL IV PRN (07:13)
[2017-12-22 07:37] LABS: BASOPHILS # (AUTO) 0.1 (0.0-0.1); BASOPHILS % 0.6 % (0.0-1.0); EOSINOPHILS # (AUTO) 0.1 (0.0-0.4); EOSINOPHILS % 1.3 % (0.0-6.0); HEMOGLOBIN 13.7 g/dL (14.0-18.0); LYMPHOCYTES # (AUTO) 1.1 (1.0-3.2); LYMPHOCYTES % 13.3 % (18.0-39.1); MEAN CORPUSCULAR HEMOGLOBIN 30.2 pg (28-32); MEAN CORPUSCULAR HGB CONC 33.4 g/dL (31-35); MEAN CORPUSCULAR VOLUME 90.3 fL (81-99); MONOCYTES # (AUTO) 0.7 (0.2-0.8); MONOCYTES % 8.4 % (4.4-11.3); NEUTROPHILS # (AUTO) 6.4 (2.1-6.9); PLATELET COUNT 267 x10e3/uL (140-360); RED BLOOD COUNT 4.54 x10e6/uL (4.3-5.7); RED CELL DISTRIBUTION WIDTH 13.6 % (11.7-14.4)
[2017-12-22] MEDS: METOCLOPRAMIDE HCL 10 MG/2ML VIAL IV SCH ×4 (07:45→20:38)
[2017-12-22] MEDS ORDERED: GADOBENATE DIMEGLUMINE 1 ML IV ONE (07:47)
[2017-12-22 08:03] LABS: ANION GAP 13.2 mmol/L (8-16); BLOOD UREA NITROGEN 18 mg/dL (7-26); BUN/CREATININE RATIO 23 (6-25); CALCIUM 8.7 mg/dL (8.4-10.2); CARBON DIOXIDE 22 mmol/L (22-29); CHLORIDE 109 mmol/L (98-107); EST GLOMERULAR FILTRATION RATE > 60 ML/MIN (60-); GLUCOSE 88 mg/dL (74-118); MAGNESIUM 1.7 MG/DL (1.3-2.1); POTASSIUM 3.2 mmol/L (3.5-5.1); SODIUM 141 mmol/L (136-145)
[2017-12-22] MEDS: NIFEDIPINE CR 30 MG TAB PO SCH (08:20)
[2017-12-22] MEDS: POTASSIUM CHLORIDE 10 MEQ TABCR PO SCH (08:20)
[2017-12-22] MEDS: SERTRALINE HCL 100 MG TAB PO SCH (08:20)
[2017-12-22] MEDS: METOPROLOL TARTRATE 25 MG TAB PO SCH ×2 (08:20→20:38)
[2017-12-22] MEDS: ENOXAPARIN INJ 80 MG/0.8 ML SYR SC SCH ×2 (08:20→20:38)
[2017-12-22] MEDS: FUROSEMIDE 20 MG TAB PO SCH (08:20)
[2017-12-22] MEDS: PANTOPRAZOLE 40 MG 10ML VIAL IV SCH ×2 (08:20→16:45)
[2017-12-22] MEDS ORDERED: AMLODIPINE BESYLATE 10 MG TAB PO SCH (09:00)
[2017-12-22] MEDS ORDERED: POTASSIUM CHLORIDE 20MEQ/100ML 100 ML IV ONE ×2 (10:15→13:30)
[2017-12-22] MEDS: LEVALBUTEROL HCL SOLN NEBU 0.63 MG/3 ML NEB INH SCH ×2 (12:38→19:00)
[2017-12-22] MEDS: IPRATROPIUM BROMIDE 0.02% 2.5 ML NEB NEB SCH ×2 (12:39→19:00)
--- NOTE | 2017-12-22 16:45 | Diagnostic Imaging Report ---
CARDIOVASCULAR MRI \T\ MRA OF THE ABDOMEN Comparison: CT abdomen and pelvis 12/18/2017 on 07/11/2017 Indication: \S\r/o ischemia Technique: GE Signa Excite 1.5 T MRI scanner. * T2 Haste imaging for anatomic definition. * Contrast-enhanced volume sets acquired for three-dimensional MRA reconstructions after injection of gadolinium-chelate (Multihance, 20 cc). * For more optimal morphologic evaluation, off-line advanced post-processing of the 3-D data was performed (using multiplanar, [id number], and/or volume-rendered reconstructions). FINDINGS: ABDOMINAL AORTA: The abdominal aorta is normal in course, caliber and contour. Moderate circumferential atherosclerotic calcifications remains a stable since 07/11/2017. No protruding plaque or thrombus. There is no evidence for acute aortic pathology. The celiac artery is patent and associated with mild atherosclerotic calcification resulting in minimal stenoses (0-24%). The SMA is patent and associated with makes plaque in the proximal segment resulting in mild stenosis (25-49%). Celiac trunk and SMA branches appear widely patent. The CAMACHO appears patent with mild atherosclerotic changes. Renal arteries: bilateral single renal arteries are normal in caliber and widely patent. Mild calcified plaque in the right renal artery resulting in minimal stenosis (0-24%). Accessory small left renal artery is better seen on prior CT. The abdominal aorta measures: 2.5 cm at the supramesenteric segment 2.4 cm at the mesenteric segment 2.2 cm at the renal segment 2.0 cm at the mid infrarenal segment 2.0 cm at the aortic bifurcation. LOWER CHEST: Small right pleural effusion with adjacent consolidation, unchanged since 12/18/2017 but new since 07/11/2017. Findings may reflect atelectasis or pneumonia. ABDOMEN: The liver, gallbladder, spleen, adrenal glands, and bilateral kidneys appear unremarkable. BONES AND SOFT TISSUES: Unremarkable on limited evaluation. IMPRESSION: Normal size of the abdominal aorta with associated moderate atherosclerotic calcifications. No acute abdominal aorta pathology. Minimal stenosis of the proximal celiac trunk and mild stenosis of the proximal SMA due to calcified and noncalcified plaque, stable since 07/11/2017. Signed by: Dr. Leslie Trujillo M.D. on 12/22/2017 4:41 PM
[2017-12-22] MEDS: LISINOPRIL 2.5 MG TAB PO SCH (20:38)
[2017-12-22] MEDS: ATORVASTATIN 40 MG TAB PO SCH (20:38)
[2017-12-23] VITALS (7 sets, daily range): BP systolic 115–161; BP diastolic 65–90
[2017-12-23] MEDS: CEFEPIME HCL 1 GM VIAL IV SCH ×2 (01:29→13:30)
[2017-12-23] MEDS: METRONIDAZOLE 500MG/NS 100ML 100 ML IV SCH ×3 (05:48→21:30)
[2017-12-23] MEDS: IPRATROPIUM BROMIDE 0.02% 2.5 ML NEB NEB SCH ×4 (06:40→19:15)
[2017-12-23] MEDS: LEVALBUTEROL HCL SOLN NEBU 0.63 MG/3 ML NEB INH SCH ×4 (06:40→19:15)
[2017-12-23 06:45] LABS: BASOPHILS # (AUTO) 0.1 (0.0-0.1); BASOPHILS % 1.1 % (0.0-1.0); EOSINOPHILS # (AUTO) 0.3 (0.0-0.4); EOSINOPHILS % 3.9 % (0.0-6.0); HEMOGLOBIN 12.8 g/dL (14.0-18.0); LYMPHOCYTES # (AUTO) 0.9 (1.0-3.2); MEAN CORPUSCULAR HEMOGLOBIN 29.9 pg (28-32); MEAN CORPUSCULAR HGB CONC 33.7 g/dL (31-35); MEAN CORPUSCULAR VOLUME 88.8 fL (81-99); MONOCYTES # (AUTO) 0.8 (0.2-0.8); MONOCYTES % 11.9 % (4.4-11.3); NEUTROPHILS # (AUTO) 4.6 (2.1-6.9); NEUTROPHILS % 68.8 % (38.7-80.0); PLATELET COUNT 245 x10e3/uL (140-360); RED BLOOD COUNT 4.28 x10e6/uL (4.3-5.7); RED CELL DISTRIBUTION WIDTH 13.6 % (11.7-14.4)
[2017-12-23 07:05] LABS: ANION GAP 10.2 mmol/L (8-16); BLOOD UREA NITROGEN 14 mg/dL (7-26); BUN/CREATININE RATIO 18 (6-25); CALCIUM 8.5 mg/dL (8.4-10.2); CARBON DIOXIDE 26 mmol/L (22-29); CHLORIDE 109 mmol/L (98-107); CREATININE, SERUM 0.78 mg/dL (0.72-1.25); EST GLOMERULAR FILTRATION RATE > 60 ML/MIN (60-); GLUCOSE 96 mg/dL (74-118); MAGNESIUM 1.6 MG/DL (1.3-2.1); POTASSIUM 3.2 mmol/L (3.5-5.1); SODIUM 142 mmol/L (136-145)
[2017-12-23] MEDS: METOCLOPRAMIDE HCL 10 MG/2ML VIAL IV SCH ×4 (07:58→20:24)
[2017-12-23] MEDS ORDERED: POTASSIUM CHLORIDE 20 MEQ TAB CR PO STA (08:17)
[2017-12-23] MEDS: NIFEDIPINE CR 30 MG TAB PO SCH (09:00)
[2017-12-23] MEDS: ENOXAPARIN INJ 80 MG/0.8 ML SYR SC SCH ×2 (09:41→20:24)
[2017-12-23] MEDS: POTASSIUM CHLORIDE 10 MEQ TABCR PO SCH (09:41)
[2017-12-23] MEDS: SERTRALINE HCL 100 MG TAB PO SCH (09:41)
[2017-12-23] MEDS: PANTOPRAZOLE 40 MG 10ML VIAL IV SCH ×2 (09:41→17:26)
[2017-12-23] MEDS: METOPROLOL TARTRATE 25 MG TAB PO SCH ×2 (09:41→20:24)
[2017-12-23] MEDS: FUROSEMIDE 20 MG TAB PO SCH (09:41)
[2017-12-23] MEDS: LISINOPRIL 2.5 MG TAB PO SCH (20:24)
[2017-12-23] MEDS: ATORVASTATIN 40 MG TAB PO SCH (20:24)
[2017-12-24] VITALS (9 sets, daily range): BP systolic 111–180; BP diastolic 58–100
[2017-12-24] MEDS: HYDRALAZINE HCL 20 MG/ML VIAL IV PRN (00:44)
[2017-12-24] MEDS: CEFEPIME HCL 1 GM VIAL IV SCH ×2 (00:49→14:05)
[2017-12-24] MEDS: IPRATROPIUM BROMIDE 0.02% 2.5 ML NEB NEB SCH ×4 (01:00→19:20)
[2017-12-24] MEDS: LEVALBUTEROL HCL SOLN NEBU 0.63 MG/3 ML NEB INH SCH ×4 (01:00→19:20)
[2017-12-24] MEDS: METOPROLOL TARTRATE INJ 1 MG/ML VIAL IV PRN ×3 (03:55→14:20)
[2017-12-24] MEDS: METRONIDAZOLE 500MG/NS 100ML 100 ML IV SCH ×3 (05:47→21:49)
[2017-12-24 06:41] LABS: HEMATOCRIT 41.5 % (38.2-49.6); MEAN CORPUSCULAR VOLUME 87.9 fL (81-99); RED BLOOD COUNT 4.72 x10e6/uL (4.3-5.7)
[2017-12-24 06:42] LABS: BASOPHILS % 1.1 % (0.0-1.0); EOSINOPHILS % 4.8 % (0.0-6.0); MEAN CORPUSCULAR HEMOGLOBIN 29.7 pg (28-32); MEAN CORPUSCULAR HGB CONC 33.7 g/dL (31-35); MONOCYTES % 12.1 % (4.4-11.3); NEUTROPHILS # (AUTO) 4.4 (2.1-6.9); NEUTROPHILS % 68.7 % (38.7-80.0); PLATELET COUNT 299 x10e3/uL (140-360); RED CELL DISTRIBUTION WIDTH 13.3 % (11.7-14.4)
[2017-12-24 06:43] LABS: BASOPHILS # (AUTO) 0.1 (0.0-0.1); EOSINOPHILS # (AUTO) 0.3 (0.0-0.4); LYMPHOCYTES # (AUTO) 0.8 (1.0-3.2); MONOCYTES # (AUTO) 0.8 (0.2-0.8)
[2017-12-24] MEDS ORDERED: LIDOCAINE HCL 2% LOCAL 20 ML VIAL ONE (06:51)
[2017-12-24] MEDS ORDERED: MIDAZOLAM HCL 2 MG/2 ML VIAL ONE (06:51)
[2017-12-24] MEDS ORDERED: FENTANYL CITRATE/PF 100MCG/2 ML INJ ONE (06:51)
[2017-12-24] MEDS ORDERED: HEPARIN SOD/SOD CHLORIDE 0 ML ONE (06:51)
[2017-12-24] MEDS ORDERED: IOPAMIDOL 370 MG/ML 200 ML INFUS..BTL INJ ONE (06:52)
[2017-12-24] MEDS ORDERED: SODIUM CHLORIDE 0.9% 1000ML 0 ML ONE (06:52)
[2017-12-24 06:53] LABS: ANION GAP 13.1 mmol/L (8-16); BLOOD UREA NITROGEN 11 mg/dL (7-26); BUN/CREATININE RATIO 15 (6-25); CALCIUM 8.7 mg/dL (8.4-10.2); CARBON DIOXIDE 24 mmol/L (22-29); CHLORIDE 105 mmol/L (98-107); CREATININE, SERUM 0.75 mg/dL (0.72-1.25); EST GLOMERULAR FILTRATION RATE > 60 ML/MIN (60-); GLUCOSE 97 mg/dL (74-118); MAGNESIUM 1.7 MG/DL (1.3-2.1); POTASSIUM 3.1 mmol/L (3.5-5.1); SODIUM 139 mmol/L (136-145)
[2017-12-24] MEDS: METOCLOPRAMIDE HCL 10 MG/2ML VIAL IV SCH ×4 (07:59→20:40)
[2017-12-24 08:12] LABS: INR 1.35; PROTHROMBIN TIME 15.7 seconds (11.9-14.5)
[2017-12-24] MEDS ORDERED: POTASSIUM CHLORIDE 20MEQ/100ML 200 ML IV ONE (08:15)
[2017-12-24] MEDS ORDERED: SODIUM CHLORIDE 0.9% 1000ML 1,000 ML ONE (08:17)
[2017-12-24] MEDS: ENOXAPARIN INJ 80 MG/0.8 ML SYR SC SCH ×3 (09:00→20:41)
[2017-12-24] MEDS ORDERED: POTASSIUM CHLORIDE 10 MEQ TABCR PO SCH (09:00)
[2017-12-24] MEDS: SERTRALINE HCL 100 MG TAB PO SCH (09:00)
[2017-12-24] MEDS: FUROSEMIDE 20 MG TAB PO SCH (09:00)
[2017-12-24] MEDS: METOPROLOL TARTRATE 25 MG TAB PO SCH ×2 (09:00→20:40)
[2017-12-24] MEDS: POTASSIUM CHLORIDE 10 MEQ TABCR PO SCH ×2 (09:00→17:32)
[2017-12-24] MEDS: PANTOPRAZOLE 40 MG 10ML VIAL IV SCH ×2 (09:14→17:31)
[2017-12-24 15:56] LABS: WBC,FECAL (FECAL LACTOFERRIN) POSITIVE (NEGATIVE)
[2017-12-24] MEDS: NIFEDIPINE CR 30 MG TAB PO SCH (17:31)
[2017-12-24] MEDS: ATORVASTATIN 40 MG TAB PO SCH (20:40)
[2017-12-24] MEDS: LISINOPRIL 2.5 MG TAB PO SCH (20:41)
[2017-12-25] VITALS (9 sets, daily range): BP systolic 104–191; BP diastolic 65–104
[2017-12-25] MEDS: IPRATROPIUM BROMIDE 0.02% 2.5 ML NEB NEB SCH ×4 (01:00→18:52)
[2017-12-25] MEDS: LEVALBUTEROL HCL SOLN NEBU 0.63 MG/3 ML NEB INH SCH ×4 (01:00→18:52)
[2017-12-25] MEDS: CEFEPIME HCL 1 GM VIAL IV SCH ×2 (01:56→15:50)
[2017-12-25] MEDS: METRONIDAZOLE 500MG/NS 100ML 100 ML IV SCH ×3 (05:52→21:49)
[2017-12-25 06:38] LABS: BASOPHILS # (AUTO) 0.1 (0.0-0.1); BASOPHILS % 1.2 % (0.0-1.0); EOSINOPHILS # (AUTO) 0.3 (0.0-0.4); EOSINOPHILS % 5.2 % (0.0-6.0); HEMATOCRIT 40.9 % (38.2-49.6); HEMOGLOBIN 13.8 g/dL (14.0-18.0); LYMPHOCYTES # (AUTO) 1.1 (1.0-3.2); LYMPHOCYTES % 16.2 % (18.0-39.1); MEAN CORPUSCULAR HEMOGLOBIN 29.8 pg (28-32); MEAN CORPUSCULAR HGB CONC 33.7 g/dL (31-35); MEAN CORPUSCULAR VOLUME 88.3 fL (81-99); MONOCYTES # (AUTO) 0.8 (0.2-0.8); NEUTROPHILS # (AUTO) 4.3 (2.1-6.9); NEUTROPHILS % 64.9 % (38.7-80.0); PLATELET COUNT 298 x10e3/uL (140-360); RED BLOOD COUNT 4.63 x10e6/uL (4.3-5.7); RED CELL DISTRIBUTION WIDTH 13.2 % (11.7-14.4)
[2017-12-25 07:00] LABS: BLOOD UREA NITROGEN 10 mg/dL (7-26); BUN/CREATININE RATIO 13 (6-25); CALCIUM 8.7 mg/dL (8.4-10.2); CARBON DIOXIDE 23 mmol/L (22-29); CHLORIDE 102 mmol/L (98-107); CREATININE, SERUM 0.75 mg/dL (0.72-1.25); EST GLOMERULAR FILTRATION RATE > 60 ML/MIN (60-); GLUCOSE 94 mg/dL (74-118); MAGNESIUM 1.5 MG/DL (1.3-2.1); SODIUM 132 mmol/L (136-145)
[2017-12-25] MEDS: METOCLOPRAMIDE HCL 10 MG/2ML VIAL IV SCH ×4 (07:30→21:47)
[2017-12-25] MEDS ORDERED: POTASSIUM CHLORIDE 20MEQ/100ML 200 ML IV ONE (08:15)
[2017-12-25] MEDS: NIFEDIPINE CR 30 MG TAB PO SCH (08:50)
[2017-12-25] MEDS: FUROSEMIDE 20 MG TAB PO SCH (09:00)
[2017-12-25] MEDS: ENOXAPARIN INJ 80 MG/0.8 ML SYR SC SCH (09:00)
[2017-12-25] MEDS: PANTOPRAZOLE 40 MG 10ML VIAL IV SCH ×2 (09:00→17:00)
[2017-12-25] MEDS: SERTRALINE HCL 100 MG TAB PO SCH (09:00)
[2017-12-25] MEDS: METOPROLOL TARTRATE 25 MG TAB PO SCH ×2 (09:05→21:48)
[2017-12-25] MEDS: POTASSIUM CHLORIDE 10 MEQ TABCR PO SCH (09:32)
[2017-12-25] MEDS ORDERED: MORPHINE SULFATE 2 MG/ML SYR IV PRN (10:45)
[2017-12-25] MEDS: SODIUM CHLORIDE 0.9% 1000ML 1,000 ML IV SCH (10:45)
[2017-12-25 12:18] LABS: C DIFFICILE TOXIN A&B AMP PROB NEGATIVE (NEGATIVE)
[2017-12-25] MEDS ORDERED: FENTANYL CITRATE/PF 100MCG/2 ML INJ ONE (12:44)
[2017-12-25] MEDS ORDERED: LIDOCAINE HCL 2% LOCAL 20 ML VIAL ONE (12:44)
[2017-12-25] MEDS ORDERED: IOPAMIDOL 370 MG/ML 200 ML INFUS..BTL INJ ONE (12:44)
[2017-12-25] MEDS ORDERED: MIDAZOLAM HCL 2 MG/2 ML VIAL ONE (12:44)
[2017-12-25] MEDS ORDERED: HEPARIN SOD/SOD CHLORIDE 2,000 ML ONE (12:44)
[2017-12-25] MEDS ORDERED: SODIUM CHLORIDE 0.9% 1000ML 1,000 ML ONE (12:45)
[2017-12-25] MEDS ORDERED: POTASSIUM CHLORIDE 20MEQ/100ML 100 ML IV ONE ×2 (13:15→13:30)
--- NOTE | 2017-12-25 14:32 | Operative Report ---
DATE OF PROCEDURE: December 25, 2017 PROCEDURES PERFORMED: 1. Left heart catheterization. 2. Selective coronary angiogram. INDICATIONS: Cardiomyopathy. BLOOD LOSS: 2 mL. ANESTHESIA: 2% lidocaine for local anesthesia and fentanyl and Versed for conscious sedation. DESCRIPTION OF PROCEDURE: After informed consent, patient was brought to the cardiac catheterization laboratory and placed on the table. Both groins were painted and draped in a sterile fashion. Lidocaine was injected in the right groin for local anesthesia. Right femoral artery was accessed by Seldinger technique, and a 5-Colombian sheath was placed in the right femoral artery. Left main artery was cannulated using a JL4, 5-Colombian catheter. Coronary angiogram was performed, and images were obtained in multiple views. The right coronary artery was cannulated using a 3DRC 5-Colombian catheter. Coronary angiogram was performed, and images were obtained in multiple views. LV gram was not performed as the catheter would not advance into the LV. There was coiling in the groin area. Patient tolerated the procedure without any complications. REPORT: LEFT MAIN: Normal caliber and there is no significant stenosis. LEFT ANTERIOR DESCENDING: Normal caliber and is totally occluded in its midsegment after the diagonal branch. The diagonal branch gives rise to a branch which has a 99% lesion. LEFT CIRCUMFLEX: Normal caliber, gives rise to a large obtuse marginal branch. Distal to that in the midsegment, the left circumflex has about a 40% lesion. RIGHT CORONARY ARTERY: Normal caliber with luminal irregularities. There are right to left collaterals noted supplying the LAD. Plan: Medical managment. 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 Job#: [id number] EV SCOTT
[2017-12-25] MEDS: HYDRALAZINE HCL 20 MG/ML VIAL IV PRN (18:09)
[2017-12-25] MEDS: ATORVASTATIN 40 MG TAB PO SCH (21:48)
[2017-12-25] MEDS: LISINOPRIL 2.5 MG TAB PO SCH (21:48)
[2017-12-26] VITALS (7 sets, daily range): BP systolic 140–177; BP diastolic 61–72
[2017-12-26] MEDS: CEFEPIME HCL 1 GM VIAL IV SCH ×2 (02:00→13:15)
[2017-12-26] MEDS: IPRATROPIUM BROMIDE 0.02% 2.5 ML NEB NEB SCH ×4 (02:05→19:00)
[2017-12-26] MEDS: LEVALBUTEROL HCL SOLN NEBU 0.63 MG/3 ML NEB INH SCH ×4 (02:05→19:00)
[2017-12-26 04:33] LABS: BASOPHILS # (AUTO) 0.1 (0.0-0.1); BASOPHILS % 0.9 % (0.0-1.0); EOSINOPHILS # (AUTO) 0.3 (0.0-0.4); EOSINOPHILS % 3.4 % (0.0-6.0); HEMATOCRIT 40.9 % (38.2-49.6); HEMOGLOBIN 13.9 g/dL (14.0-18.0); LYMPHOCYTES # (AUTO) 1.5 (1.0-3.2); LYMPHOCYTES % 20.2 % (18.0-39.1); MEAN CORPUSCULAR HEMOGLOBIN 29.8 pg (28-32); MEAN CORPUSCULAR VOLUME 87.8 fL (81-99); MONOCYTES # (AUTO) 0.7 (0.2-0.8); NEUTROPHILS # (AUTO) 4.8 (2.1-6.9); NEUTROPHILS % 65.1 % (38.7-80.0); PLATELET COUNT 325 x10e3/uL (140-360); RED BLOOD COUNT 4.66 x10e6/uL (4.3-5.7); RED CELL DISTRIBUTION WIDTH 13.3 % (11.7-14.4)
[2017-12-26 04:44] LABS: ANION GAP 12.7 mmol/L (8-16); BLOOD UREA NITROGEN 10 mg/dL (7-26); BUN/CREATININE RATIO 13 (6-25); CALCIUM 8.8 mg/dL (8.4-10.2); CARBON DIOXIDE 20 mmol/L (22-29); CHLORIDE 104 mmol/L (98-107); CREATININE, SERUM 0.75 mg/dL (0.72-1.25); EST GLOMERULAR FILTRATION RATE > 60 ML/MIN (60-); GLUCOSE 84 mg/dL (74-118); SODIUM 133 mmol/L (136-145)
[2017-12-26 04:47] LABS: POTASSIUM 3.7 mmol/L (3.5-5.1)
[2017-12-26] MEDS: METRONIDAZOLE 500MG/NS 100ML 100 ML IV SCH ×3 (06:24→22:09)
[2017-12-26 06:39] LABS: EOSINOPHILS % (MANUAL) 2 % (0-7); LYMPHOCYTES % (MANUAL) 19 % (19-48); MONOCYTES % (MANUAL) 3 % (3.4-9.0); NEUTROPHILS % (MANUAL) 72 % (40-74); RBC MORPHOLOGY COMMENT NORMAL
[2017-12-26 06:40] LABS: PLATELET ESTIMATE ADEQUATE; PLATELET MORPHOLOGY COMMENT NORMAL
[2017-12-26] MEDS: FUROSEMIDE 20 MG TAB PO SCH (07:46)
[2017-12-26] MEDS: POTASSIUM CHLORIDE 10 MEQ TABCR PO SCH (07:46)
[2017-12-26] MEDS: SERTRALINE HCL 100 MG TAB PO SCH (07:46)
[2017-12-26] MEDS: PANTOPRAZOLE 40 MG 10ML VIAL IV SCH ×2 (08:45→16:54)
[2017-12-26] MEDS: METOCLOPRAMIDE HCL 10 MG/2ML VIAL IV SCH ×4 (08:45→20:45)
[2017-12-26] MEDS: METOPROLOL TARTRATE 25 MG TAB PO SCH ×2 (08:46→20:47)
[2017-12-26] MEDS: NIFEDIPINE CR 30 MG TAB PO SCH (08:46)
[2017-12-26] MEDS: SODIUM CHLORIDE 0.9% 1000ML 1,000 ML IV SCH (10:14)
[2017-12-26] MEDS ORDERED: FENTANYL CITRATE/PF 100MCG/2 ML INJ ONE (14:46)
[2017-12-26] MEDS ORDERED: MIDAZOLAM HCL 2 MG/2 ML VIAL ONE (14:46)
--- NOTE | 2017-12-26 16:21 | Operative Report ---
DATE OF PROCEDURE: December 26, 2017 REFERRING PHYSICIAN: Dr. Urias PROCEDURE PERFORMED: Esophagogastroduodenoscopy with biopsies. INDICATIONS FOR EGD: Upper abdominal pain and pain exacerbated with meals. MEDICATION: Patient was done under MAC. Please see anesthesiologist's note. PROCEDURE: With the patient in the left lateral decubitus position, the flexible fiberoptic Olympus gastroscope was introduced into the esophagus under direct visualization without any difficulty. There was some patchy erythema noted in the distal esophagus. The scope was then advanced with ease into the stomach traversing a small hiatal hernia. Mucosa overlying the antrum and the body revealed some patchy erythema and low-grade to moderate edema, and biopsies were obtained and sent to stain for H. pylori. Pylorus appeared to be of normal contour and shape. It was intubated with ease. The scope was advanced all the way to the 2nd portion of the duodenum. The scope was then withdrawn slowly. Mucosa overlying the proximal 2nd portion, as well as the duodenal bulb was grossly unremarkable other than for mild inflammatory changes in the duodenal bulb. The scope was then withdrawn back into the stomach and retroflexed. The mucosa overlying the fundus appeared to be within normal limits. The previously described hiatal hernia was also noted in the retroflexed position. The scope was then straightened out. It was subsequently withdrawn. Patient tolerated the procedure well. IMPRESSION 1. Distal esophagitis, mild. 2. Small hiatal hernia. 3. Gastritis, biopsied. Biopsies sent to stain for Helicobacter pylori. PLAN: Follow up histology. Continue Protonix 40 mg 1 p.o. q.a.m. a.c. Job#: [id number] RI cc:GRAYSON URIAS MD
[2017-12-26] MEDS ORDERED: LIDOCAINE HCL 2% LOCAL INJ 5 ML SDV VIAL INJ ONE (18:24)
[2017-12-26] MEDS ORDERED: PROPOFOL IV EMULSION 10 MG/ML 50 ML VIAL ONE (18:24)
[2017-12-26] MEDS: ATORVASTATIN 40 MG TAB PO SCH (20:45)
[2017-12-26] MEDS: LISINOPRIL 2.5 MG TAB PO SCH (20:47)
[2017-12-27] VITALS: BP 192/78
[2017-12-27] MEDS: CEFEPIME HCL 1 GM VIAL IV SCH (00:34)
[2017-12-27] MEDS: LEVALBUTEROL HCL SOLN NEBU 0.63 MG/3 ML NEB INH SCH ×4 (01:00→19:29)
[2017-12-27] MEDS: IPRATROPIUM BROMIDE 0.02% 2.5 ML NEB NEB SCH ×4 (01:00→19:29)
[2017-12-27 04:00] VITALS: BP 180/77
[2017-12-27] MEDS: METRONIDAZOLE 500MG/NS 100ML 100 ML IV SCH (05:21)
[2017-12-27] MEDS: HYDRALAZINE HCL 20 MG/ML VIAL IV PRN (05:26)
[2017-12-27 07:40] LABS: BASOPHILS # (AUTO) 0.1 (0.0-0.1); BASOPHILS % 0.6 % (0.0-1.0); EOSINOPHILS # (AUTO) 0.4 (0.0-0.4); HEMATOCRIT 39.8 % (38.2-49.6); HEMOGLOBIN 13.7 g/dL (14.0-18.0); LYMPHOCYTES % 24.5 % (18.0-39.1); MEAN CORPUSCULAR HEMOGLOBIN 29.9 pg (28-32); MEAN CORPUSCULAR HGB CONC 34.4 g/dL (31-35); MEAN CORPUSCULAR VOLUME 86.9 fL (81-99); MONOCYTES # (AUTO) 0.7 (0.2-0.8); NEUTROPHILS % 61.7 % (38.7-80.0); PLATELET COUNT 316 x10e3/uL (140-360); RED BLOOD COUNT 4.58 x10e6/uL (4.3-5.7); RED CELL DISTRIBUTION WIDTH 13.3 % (11.7-14.4)
[2017-12-27 07:59] LABS: ANION GAP 13.2 mmol/L (8-16); BLOOD UREA NITROGEN 13 mg/dL (7-26); BUN/CREATININE RATIO 18 (6-25); CALCIUM 8.4 mg/dL (8.4-10.2); CARBON DIOXIDE 21 mmol/L (22-29); CHLORIDE 108 mmol/L (98-107); CREATININE, SERUM 0.73 mg/dL (0.72-1.25); EST GLOMERULAR FILTRATION RATE > 60 ML/MIN (60-); GLUCOSE 88 mg/dL (74-118); MAGNESIUM 1.4 MG/DL (1.3-2.1); POTASSIUM 3.2 mmol/L (3.5-5.1); SODIUM 139 mmol/L (136-145)
[2017-12-27 08:08] VITALS: BP 163/70
[2017-12-27] MEDS ORDERED: NIFEDIPINE CR 30 MG TAB PO ONE (08:30)
[2017-12-27] MEDS: METOCLOPRAMIDE HCL 10 MG/2ML VIAL IV SCH ×4 (09:21→20:40)
[2017-12-27] MEDS: PANTOPRAZOLE 40 MG 10ML VIAL IV SCH ×2 (09:21→16:07)
[2017-12-27] MEDS: FUROSEMIDE 20 MG TAB PO SCH (09:21)
[2017-12-27] MEDS: POTASSIUM CHLORIDE 10 MEQ TABCR PO SCH (09:21)
[2017-12-27] MEDS: SERTRALINE HCL 100 MG TAB PO SCH (09:22)
[2017-12-27] MEDS: METOPROLOL TARTRATE 25 MG TAB PO SCH ×2 (09:22→20:41)
[2017-12-27] MEDS: CLOPIDOGREL BISULFATE 75 MG TAB PO SCH (09:22)
[2017-12-27] MEDS: NIFEDIPINE CR 30 MG TAB PO SCH (09:22)
[2017-12-27 09:26] LABS: EOSINOPHILS % (MANUAL) 2 % (0-7); LYMPHOCYTES % (MANUAL) 21 % (19-48); MONOCYTES % (MANUAL) 4 % (3.4-9.0); NEUTROPHILS % (MANUAL) 73 % (40-74)
[2017-12-27 09:27] LABS: PLATELET ESTIMATE ADEQUATE; PLATELET MORPHOLOGY COMMENT NORMAL; RBC MORPHOLOGY COMMENT NORMAL
[2017-12-27] MEDS: ONDANSETRON HCL INJ 2 MG/ML VIAL IV PRN (11:27)
[2017-12-27 12:00] VITALS: BP 128/66
[2017-12-27 16:00] VITALS: BP 139/70
[2017-12-27 20:00] VITALS: BP 157/94
[2017-12-27] MEDS: ATORVASTATIN 40 MG TAB PO SCH (20:40)
[2017-12-27] MEDS: LISINOPRIL 2.5 MG TAB PO SCH (20:42)
[2017-12-28] MEDS: IPRATROPIUM BROMIDE 0.02% 2.5 ML NEB NEB SCH ×3 (01:00→12:49)
[2017-12-28] MEDS: LEVALBUTEROL HCL SOLN NEBU 0.63 MG/3 ML NEB INH SCH ×3 (01:00→12:48)
[2017-12-28 01:07] VITALS: BP 132/71
[2017-12-28 03:41] LABS: BASOPHILS # (AUTO) 0.1 (0.0-0.1); BASOPHILS % 1.1 % (0.0-1.0); EOSINOPHILS # (AUTO) 0.3 (0.0-0.4); EOSINOPHILS % 4.3 % (0.0-6.0); HEMATOCRIT 39.9 % (38.2-49.6); HEMOGLOBIN 13.6 g/dL (14.0-18.0); LYMPHOCYTES # (AUTO) 1.9 (1.0-3.2); LYMPHOCYTES % 25.6 % (18.0-39.1); MEAN CORPUSCULAR HEMOGLOBIN 29.6 pg (28-32); MEAN CORPUSCULAR HGB CONC 34.1 g/dL (31-35); MEAN CORPUSCULAR VOLUME 86.7 fL (81-99); MONOCYTES # (AUTO) 0.7 (0.2-0.8); MONOCYTES % 9.6 % (4.4-11.3); NEUTROPHILS # (AUTO) 4.5 (2.1-6.9); NEUTROPHILS % 58.7 % (38.7-80.0); PLATELET COUNT 313 x10e3/uL (140-360); RED CELL DISTRIBUTION WIDTH 13.2 % (11.7-14.4)
[2017-12-28 04:00] VITALS: BP 168/71
[2017-12-28] MEDS ORDERED: POTASSIUM CHLORIDE 20 MEQ TAB CR PO STA (07:33)
[2017-12-28 07:49] VITALS: BP 162/78
[2017-12-28 07:59] LABS: EOSINOPHILS % (MANUAL) 2 % (0-7); LYMPHOCYTES % (MANUAL) 19 % (19-48); MONOCYTES % (MANUAL) 1 % (3.4-9.0); NEUTROPHILS % (MANUAL) 68 % (40-74)
[2017-12-28 08:01] LABS: PLATELET ESTIMATE ADEQUATE; PLATELET MORPHOLOGY COMMENT NORMAL; RBC MORPHOLOGY COMMENT NORMAL
[2017-12-28] MEDS: PANTOPRAZOLE 40 MG 10ML VIAL IV SCH ×2 (08:22→17:45)
[2017-12-28] MEDS: METOCLOPRAMIDE HCL 10 MG/2ML VIAL IV SCH ×3 (08:22→15:40)
[2017-12-28] MEDS: FUROSEMIDE 20 MG TAB PO SCH (08:23)
[2017-12-28] MEDS: METOPROLOL TARTRATE 25 MG TAB PO SCH (08:24)
[2017-12-28] MEDS: SERTRALINE HCL 100 MG TAB PO SCH (08:24)
[2017-12-28] MEDS: CLOPIDOGREL BISULFATE 75 MG TAB PO SCH (08:24)
[2017-12-28] MEDS: NIFEDIPINE CR 30 MG TAB PO SCH (08:24)
[2017-12-28] MEDS: POTASSIUM CHLORIDE 10 MEQ TABCR PO SCH (08:26)
[2017-12-28 09:00] VITALS: BP 162/78
[2017-12-28] MEDS ORDERED: POTASSIUM CHLORIDE 20 MEQ TAB CR PO NR (09:15)
[2017-12-28 10:11] LABS: ANION GAP 10.1 mmol/L (8-16); BLOOD UREA NITROGEN 8 mg/dL (7-26); BUN/CREATININE RATIO 11 (6-25); CALCIUM 8.7 mg/dL (8.4-10.2); CARBON DIOXIDE 24 mmol/L (22-29); CHLORIDE 103 mmol/L (98-107); CREATININE, SERUM 0.76 mg/dL (0.72-1.25); EST GLOMERULAR FILTRATION RATE > 60 ML/MIN (60-); GLUCOSE 99 mg/dL (74-118); POTASSIUM 3.1 mmol/L (3.5-5.1); SODIUM 134 mmol/L (136-145)
[2017-12-28] MEDS ORDERED: CEFEPIME HCL 1 GM VIAL IV SCH (10:30)
[2017-12-28] MEDS ORDERED: METRONIDAZOLE 500MG/NS 100ML 100 ML IV SCH (12:00)
--- NOTE | 2017-12-28 14:10 | Progress Note ---
DATE: Mr. Streeter is doing well. No new complaints. PHYSICAL EXAMINATION GENERAL: He is currently alert and oriented. Does not seem in acute distress. VITALS: Stable and afebrile. HEENT: He is nonicteric. NECK: Supple. CHEST: Clear. HEART: S1 and S2. No murmur. His MRI which was done and MRA seems to be patent. He did have cardiomyopathy. His cultures remain negative. IMPRESSION 1. Abdominal pain. 2. Sepsis on admission: Seems to be resolved. Source is unclear. Can discontinue intravenous antibiotics. Will follow. Job#: [id number] MI
[2017-12-28 15:55] VITALS: BP 160/67
--- NOTE | 2017-12-28 18:10 | Discharge Summary ---
ADMISSION DIAGNOSES 1. Atrial fibrillation with rapid ventricular response. 2. Hypertension. 3. Hyperlipidemia. 4. Congestive heart failure. 5. Anxiety/depression. 6. Abdominal pain. 7. Coronary artery disease. 8. Leukocytosis. DISCHARGE DIAGNOSES 1. Atrial fibrillation with rapid ventricular response. 2. Hypertension. 3. Hyperlipidemia. 4. Congestive heart failure. 5. Anxiety/depression. 6. Abdominal pain. 7. Coronary artery disease. 8. Leukocytosis. 9. Ruled out Clostridium difficile. 10. Ruled out gastrointestinal bleed. 11. Hyponatremia. 12. Hypokalemia. 13. Anemia. HISTORY: Patient has a history of CVA with right-side deficit, AFib, CAD with stent, hypertension, hyperlipidemia, CHF, anxiety/depression. HOSPITAL COURSE: A 77-year-old male complains of abdominal pain and nausea that began yesterday. He is unable to tell me if the pain is before or after eating. Patient had emesis this a.m. along with a bowel movement this morning. He has not eaten lunch. On arrival to ER, patient was found to be in AFib RVR, pulse around 170. He denied chest pain, palpitations and shortness of breath. On admission patient was placed on a Cardizem drip per Cardiology, started on Lovenox, Plavix, and he had an echo done. Echo shows an EF of about 40% with moderate LVH and mild to moderate aortic regurge, mild mitral regurge, mild tricuspid regurge, no pericardial effusion. Patient was initially started on Coreg, Imdur and lisinopril per home medications, but the blood pressure dropped to 70s. So, all blood pressure meds were discontinued. Patient continued on Lasix for CHF, Lipitor for hyperlipidemia, Zoloft, Protonix. WBC was found to be 12. T-max was 100.7. Blood cultures were negative. Urine cultures were negative. Patient continued to complain of abdominal pain. So, he had a HIDA scan on September 22, 2017, which showed a normal EF of the gallbladder. An abdominal MRI to rule out ischemic gut per ID, which showed normal size of the abdominal aorta with associated moderate atherosclerotic calcifications, no acute abdominal aorta pathology. On admission the patient also had a chest x-ray which showed diffuse opacities, right basilar opacity. Abdominal CT that showed no acute abnormality. Due to the consistent abdominal pain, the patient then went for an EGD on December 26. It had to be put off many days due to scheduling. The EGD showed mild esophagitis, small hiatal hernia, and gastritis. Patient also had a cardiac cath, also put off for a couple of days due to scheduling reasons. Cardiac cath showed left main normal caliber, no significant stenosis. LAD totally occluded in its midsegment after the diagonal branch, but diagonal branch gives rise to a branch which has a 99% lesion. Left circumflex normal caliber, gives rise to a large obtuse marginal branch. Distal to that in the midsegment, the left circumflex has about a 40% lesion. The RCA is normal caliber with luminal irregularities. There are right to left collaterals noted supplying the LAD. Per cardiology recs, the patient will continue with medical management. He has a history of chronic occlusion. Prior to discharge, patient began to eat better and his abdominal pain slowly disappeared. He was continued on PPI per GI. On day of discharge, WBC is 7.59, hemoglobin 13.6, hematocrit 39.9. Sodium 134, potassium 3.1 which was repleted prior to discharge, creatinine 0.76, BUN of 8, GFR of over 60, calcium of 8.7. Patient will discharge home and cleared by Cardiology and Gastroenterology. He will continue with Plavix daily with no other anticoagulation due to fall risks. He will continue his Coreg and Imdur pending his blood pressure checks. He will follow up with Cardiology and Gastroenterology in 1 to 2 weeks. He was denied SNF placement because he did not meet requirements. He will discharge home with family and have home health available for physical therapy. Patient and family agree with discharge plan, and they are excited to return home. Dictated by: Mirian Cee NP GRAYSON STEEN MD Job#: [id number] AUDREY
[2017-12-28 20:00] VITALS: BP 139/61
== END 2017-12-28 21:44 | disposition home health service (06) | DRG 871 ==
LOC: ER 19:37 → ERHOLD 23:54 → ICU 12-19 00:05 → MED/SURG3 12-21 17:55 → ACU 12-28 11:46 → MED/SURG3 12-28 11:46 → UNDODISIN 12-28 19:00
PROVIDERS: ADMIT Internal Medicine; ATTEND Internal Medicine
PROC: 4A023N7 Measurement of Cardiac Sampling and Pressure, Left Heart, Percutaneous Approach (ICD-10-PCS; 2017-12-25)
PROC: B2151ZZ Fluoroscopy of Left Heart using Low Osmolar Contrast (ICD-10-PCS; 2017-12-25)
PROC: B2111ZZ Fluoroscopy of Multiple Coronary Arteries using Low Osmolar Contrast (ICD-10-PCS; 2017-12-25)
PROC: 0DB78ZX Excision of Stomach, Pylorus, Via Natural or Artificial Opening Endoscopic, Diagnostic (ICD-10-PCS; 2017-12-26)
PROC: 0DB68ZX Excision of Stomach, Via Natural or Artificial Opening Endoscopic, Diagnostic (ICD-10-PCS; principal; 2017-12-26 15:00)
DX: A41.9 Sepsis, unspecified organism (principal); I50.21 Acute systolic (congestive) heart failure; E87.1 Hypo-osmolality and hyponatremia; I69.351 Hemiplegia and hemiparesis following cerebral infarction affecting right dominant side; I48.91 Unspecified atrial fibrillation; Z79.01 Long term (current) use of anticoagulants; F41.9 Anxiety disorder, unspecified; F32.9 Major depressive disorder, single episode, unspecified; E78.5 Hyperlipidemia, unspecified; D64.9 Anemia, unspecified; I25.10 Atherosclerotic heart disease of native coronary artery without angina pectoris; Z95.5 Presence of coronary angioplasty implant and graft; E87.6 Hypokalemia; K20.9 Esophagitis, unspecified; K29.70 Gastritis, unspecified, without bleeding; J44.9 Chronic obstructive pulmonary disease, unspecified; K46.9 Unspecified abdominal hernia without obstruction or gangrene; I25.84 Coronary atherosclerosis due to calcified coronary lesion; I25.82 Chronic total occlusion of coronary artery
CPT/HCPCS: 36140; 36415; 43239; 71045; 74177; 74185; 77002; 78227; 80048; 80053; 80061; 81001; 82150; 82270; 82550; 82553; 82948; 83036; 83605; 83630; 83690; 83735; 83880; 84439; 84443; 84484; 85025; 85610; 85730; 87040; 87045; 87086; 87177; 87493; 88305; 88312; 93005; 93306; 93454; 94640; 96361; 96367; 96372; 97139; 99285; A9537; J0360; J0692; J1650; J2001; J2250; J2270; J2405; J2765; J2805; J3480; J7030; J7040; J7050; Q9967